=== PATIENT | male | born 1980 | race Caucasian/White ===

== ENCOUNTER 2018-04-04 15:21 | Observation (INO) ==
--- NOTE | 2018-04-04 15:38 | Emergency Department Note ---
ED Disposition Clinical Impression: Hypoglycemia, New onset seizure Disposition: Still a Patient Condition on Discharge: Fair Referrals: Merle Lopez APRN [Primary Care Provider] - - Critical Care Critical Care Time: No Attestation: On , the high probability of a clinically significant, sudden or life threatening deterioration of the following system(s) required my full and direct attention, intervention and personal management. The time I documented below is in addition to time spent performing reported procedures but includes the following listed in this critical care notation. Medical Decision Making - Dax Inquiry Pt receiving controlled substance: No Dax was queried for this patient: No Vital Signs: 04/04/18 15:22 04/04/18 17:08 Temperature 98.0 F Temperature Source Oral Pulse Rate [Left Radial] 114 H 94 H Respiratory Rate 20 Blood Pressure [Right Arm] 131/79 126/83 Blood Pressure Mean [Right Arm] 96 97 Blood Pressure Source [Right Arm] Automatic Cuff Automatic Cuff Blood Pressure Position [Right Arm] Sitting Sitting 02 Sat by Pulse Oximetry 99 98 Oxygen Delivery Method Room Air Room Air - Lab Data Lab Results 04/04/18 16:25: WBC 16.6 H, RBC 5.05, Hgb 14.4, Hct 42.8, MCV 84.8, MCH 28.5, MCHC 33.6, RDW 13.2, Plt Count 260, MPV 7.5, Neut % (Auto) 87.4 H, Lymph % (Auto) 5.6 L, [place] % (Auto) 5.4, Eos % (Auto) 1.0, Baso % (Auto) 0.5, Neut # (Auto) 14.6 H, Lymph # (Auto) 0.9, [place] # (Auto) 0.9, Eos # (Auto) 0.2, Baso # (Auto) 0.1, Total Counted 100, Neutrophils % (Manual) 86 H, Band Neutrophils % 1.0, Lymphocytes % (Manual) 7 L, Monocytes % (Manual) 5, Eosinophils % (Manual) 1, Platelet Estimate Normal, RBC Morphology Normal 04/04/18 16:25: Sodium 138, Potassium 4.2, Chloride 103, Carbon Dioxide 27, Anion Gap 7.7, BUN 15, Creatinine 1.49 H, Estimated Creat Clear 57, Estimated GFR 53 L, Est GFR ( Amer) 65, Glucose 127 H, Calcium 8.9, Total Bilirubin 0.3, AST 19, ALT 25, Alkaline Phosphatase 57, Total Creatine Kinase 144, CK-MB (CK-2) 1.7, CK-MB (CK-2) Rel Index 1.2, Troponin I < 0.02, Total Protein 7.9, Albumin 4.1, Globulin 3.8 H, Albumin/Globulin Ratio 1.1, Plasma/Serum Alcohol 0 04/04/18 17:35: Urine Color Yellow, Urine Appearance Clear, Urine pH 6.5, Ur Specific [place] <= 1.005, Urine Protein Negative, Urine Glucose (UA) Negative, Urine Ketones Negative, Urine Blood Negative, Urine Nitrate Negative, Urine Bilirubin Negative, Urine Urobilinogen 0.2, Ur Leukocyte Esterase Negative, Urine WBC Occasional, Amorphous Sediment Trace 04/04/18 17:35: Urine Opiates Screen Negative, Urine Methadone Screen Negative, Ur Barbituates Screen Negative, Ur Phencyclidine Scrn Negative, Ur Amphetamines Screen Negative, U Benzodiazepines Scrn Negative, Urine Cocaine Screen Negative, U Marijuana (THC) Screen Negative Result diagrams: 04/04/18 16:25 04/04/18 16:25 Orders (Tests/Meds): ED MEDICATIONS Discontinued Medications Generic Name Dose Route Start Last Admin Trade Name Michaelq PRN Reason Stop Dose Admin Sodium Chloride 1,000 mls @ 999 mls/hr 04/04/18 15:45 04/04/18 17:04 Sod Chlor 0.9% 1000ml Bag IV 04/04/18 16:45 999 mls/hr .[id number] Administration Ceftriaxone Sodium 1 gm/ 50 mls @ 100 mls/hr 04/04/18 17:04 04/04/18 17:27 Sodium Chloride IV 04/04/18 17:33 100 mls/hr ONCE ONE Administration Protocol ORDERS Category Date Time Status Chest XR -- portable [XR chest portable] Stat Exams 04/04/18 15:40 Taken Lactic Acid Stat Lab 04/04/18 18:10 Received Urinalysis and Microscopic Stat Lab 04/04/18 17:35 Ordered Blood Culture Stat Micro 04/04/18 18:10 Received ECG Request by /Nse Stat Y 04/04/18 15:34 Ordered - CT Data CT Scan: Head Time Received: 18:06 Findings Narrative: MPRESSION: No acute intracranial findings. Brain within normal limits. - ECG Data Tracing #1 Sinus tachycardia 103/min right axis deviation no acute finding. ECG initial impression date: 04/04/18 ECG initial impression time: 15:40 Medical Decision Narrative: I reviewed clinical findings labs CT and x-rays with Dr. Faustin his primary physician. At this point is not clear what caused his new onset seizure his hypoxemia is the alcohol withdrawal or else. He has elevated white count without fever or a source. He has no meningeal signs no stiffness no rigidity. No altered mental status. Dr. Faustin agreed to the patient for observe. General Adult HPI - General Chief complaint: PAIN Stated complaint: Pain Time Seen by Provider: 04/04/18 15:25 Mode of Arrival: EMS Limitations: No Limitations Description of Symptoms (Recalled from ER Triage Doc. by RN): Pt states he is having chest pain on his right side under his arm to right back. States he was having muscle spasms that started today. Family states that he blacked out for about 10 minutes and looked like he was having a seizure - History of Present Illness HPI narrative: 37 years old white male with history of hypokalemia noncompliant with his potassium replacment. Today at 2 PM he started, generalized body shakes and sti ffness questionable for tonic-clonic seizure seizure, of consciousness that lasted for 10 minutes followed by another 10 minutes for him to recover. Accu- Chek by the was found to be 58 he was given p.o. orange juice and blood sugar was raised to 208. He remains alert with generalized shakes until he arrived to the ED. he has no focal deficit alert oriented x3. Onset (ago): hour(s) (1-1/2-hour ago.) Relieving factors: none Exacerbating factors: none Associated symptoms: other (possibles Seizures. ) Treatments prior to arrival: none - Related Data Allergies Allergy/AdvReac Type Severity Reaction Status Date / Time No Known Allergies Allergy Unverified 06/09/17 14:14 [facility] History I have reviewed the patient's past medical history: Yes - Social History Alcohol Intake: current Alcohol Intake Frequency:: holidays/special occasions only - Psychiatric History Expresses thoughts of harming self/others: None Suicide Plan Description: No Plan ROS Obtained: Yes All systems reviewed & no additional complaints Physical Exam - General General appearance: alert, in no apparent distress, anxious - Head Head exam: atraumatic, normocephalic, normal inspection - Eye Eye exam: Present: normal appearance, PERRL, EOMI. Absent: scleral icterus, nystagmus - ENT ENT exam: Present: normal exam, normal oropharynx, mucous membranes moist, TM's normal bilaterally, normal external ear exam - Neck Neck exam: Present: normal inspection, full ROM, trachea midline. Absent: tenderness, meningismus, lymphadenopathy - Chest Chest inspection: Present: normal inspection, symmetric chest wall rise. Absent: tenderness - Respiratory Respiratory exam: Present: normal lung sounds bilaterally. Absent: respiratory distress, wheezes - Cardiovascular Cardiovascular exam: Present: regular rate, normal rhythm, normal heart sounds. Absent: JVD - Abdominal Exam Abdominal exam: Present: soft, normal bowel sounds. Absent: distention, tenderness, guarding, rebound, rigidity, Gonzalez's sign, tenderness at McBurney's Point - Extremities Exam Extremities exam: Present: normal inspection, full ROM, normal capillary refill. Absent: tenderness, pedal edema, joint swelling, calf tenderness - Back Exam Back exam: Present: normal inspection. Absent: tenderness, CVA tenderness (R), CVA tenderness (L), paraspinal tenderness - Neurological Exam Neurological exam: Present: alert, oriented X3, CN II-XII intact, motor sensory deficit, reflexes normal - Psychiatric Psychiatric exam: Present: normal affect, normal mood, anxious, other (He is anxious and shaking. ) - Skin Skin exam: Present: warm, dry, intact, normal color - Lymphatic Lymphatic Findings: no adenopathy
[2018-04-04 16:41] LABS: Basophils # 0.1 K/mm3 (0-0.2); Basophils % 0.5 % (0.1-2.0); Eosinophils # 0.2 K/mm3 (0.0-0.4); Hematocrit 42.8 % (42.0-52.0); Hemoglobin 14.4 g/dL (14.1-18.0); Lymphocytes # 0.9 K/mm3 (0.7-4.5); Lymphocytes % 5.6 K/mm3 (10-50); Mean Corpuscular HGB Conc 33.6 g/dL (31.8-35.4); Mean Corpuscular Hemoglobin 28.5 pg (27.0-31.2); Mean Corpuscular Volume 84.8 fl (80-94); Mean Platelet Volume 7.5 fl (7.4-10.4); Monocytes # 0.9 K/mm3 (0.1-1.0); Monocytes % 5.4 % (1.7-9.3); Neutrophils # 14.6 K/mm3 (1.8-7.8); Neutrophils % 87.4 % (37.0-80.0); Platelet Count 260 K/mm3 (142-424); Red Blood Count 5.05 M/mm3 (4.60-6.20); Red Cell Distribution Width 13.2 % (11.5-17.5); White Blood Count 16.6 K/mm3 (4.8-10.8)
[2018-04-04 16:56] LABS: Alanine Aminotransferase 25 U/L (12-78); Albumin Level 4.1 gm/dL (3.4-5.0); Albumin/Globulin Ratio 1.1 (1.1-1.8); Anion Gap 7.7 mEq/L (5-15); Aspartate Amino Transferase 19 U/L (15-37); Bilirubin,Total 0.3 mg/dL (0.2-1.0); Blood Urea Nitrogen 15 mg/dL (7-18); Calcium 8.9 mg/dL (8.5-10.1); Carbon Dioxide 27 mmol/L (21.0-32.0); Chloride 103 mmol/L (98-107); Creatine Kinase 144 U/L (39-308); Globulin 3.8 gm/dl (1.3-3.2); Glucose 127 mg/dL (74-106); Potassium 4.2 mmoL/L (3.5-5.1); Sodium 138 mmol/L (136-145); Total Protein,Serum 7.9 gm/dL (6.4-8.2)
[2018-04-04 16:57] LABS: Alkaline Phosphatase 57 U/L (46-116); Ethyl Alcohol 0 mg/dL (0-99)
[2018-04-04 16:59] LABS: Eosinophils % 1 % (0-3); Lymphocytes % 7 % (10-50); Monocytes % 5 % (2-9); Neutrophils % 86 % (42-76); RBC Morphology Normal; Total Cells Counted 100
[2018-04-04 17:48] LABS: Microscopic, Urine URINE MICROSCOPIC (MICROSCOPIC)
[2018-04-04 17:52] LABS: Appearance,Urine CLEAR (Clear); Bilirubin,Urine Negative (Negative); Blood, Urine Negative (Negative); Color,Urine YELLOW (Yellow); Glucose,Urine (UA) Negative (Negative); Ketones,Urine Negative (Negative); Leukocyte Esterase,Urine Negative (Negative); PH,Urine 6.5 (5.0-8.5); Protein,Urine Negative (Negative); Specific Gravity, Urine <= 1.005 (1.005-1.030); Urobilinogen,Urine 0.2 EU/dl (0.2)
[2018-04-04 17:57] LABS: Amorphous Sediment,Urine Trace /lpf; WBC,Urine Occasional #/hpf (0-3)
[2018-04-04 17:58] LABS: Amphetamine/Metha Screen,Urine Negative ng/mL (<1000); Barbiturates Screen,Urine Negative ng/mL (<200); Benzodiazepines Screen,Urine Negative ng/mL (<200); Cannabinoid Screen,Urine Negative ng/mL (<50); Cocaine Screen,Urine Negative ng/mL (<300); Methadone Screen,Urine Negative ng/mL (<300); Opiate Screen,Urine Negative ng/mL (<300); Phencyclidine Screen,Urine Negative ng/mL (<25)
--- NOTE | 2018-04-05 06:53 | History & Physical Report ---
*Admission Date: 04/05/18 *Chief complaint: Witnessed seizure-like activity *History of present illness: 37-year-old male was at home in his usual state of health when he experienced sudden onset of bilateral hand cramping. This was followed by a sensation as if he might pass out. He went into his living room to sit down when he developed seizure-like activity witnessed by his . Patient does not recall this. His does not recall how long the episode lasted. He apparently has a history of hypoglycemia so she checked his blood sugar and his blood sugar was 58. She was able to get his blood sugar up once the seizure-like activity calm down. He was then brought to the emergency department. There is a family history of seizures in his brother as a child. Otherwise no other family members with seizures. This is the first seizure-like event the patient has had. He did not bite his tongue. He denies loss of bowel or bladder function. While he has a history of hypoglycemia he has never had any seizure-like activity associated with them. His blood sugar has been lower than 58 in the past. [facility] History I have reviewed the patient's past medical history: Yes Medical History: Denies:: Cancer, Diabetes Mellitus Type 1 (PT STATES NOT DX WITH DM, BUT RUNS LOW A LOT), MRSA Comment: Chronic back pain Laterality Cases: Right: Other Other Surgeries: Yes: Other (RIGHT PINKY FINGER) Amputation: No Fractures: Yes - *Social History Educational Level: Attended Grade School Smoking Status: Unknown if ever smoked Tobacco Type: smokeless tobacco Alcohol Intake: never Alcohol Intake Frequency:: holidays/special occasions only Occupational Status: employed Household Members: spouse, children - Psychiatric History Expresses thoughts of harming self/others: None Suicide Plan Description: No Plan *Family Hx:: Diabetes, Heart Attack, Hyperlipidemia, Hypertension, Stroke Review of Systems - Review of Systems Review of systems:: pertinent systems reviewed and negative unless documented below - Constitutional Denies body ache(s), Denies chills, Denies daytime sleepiness - Eyes Reports blurry vision Comments: Associated with low blood sugar - *Cardiovascular Denies chest pain, Denies chest pain at rest, Denies chest pain with activity - *Respiratory Denies chest congestion, Denies cough - *Gastrointestinal Denies abdominal pain, Denies belching, Denies bloating - *Musculoskeletal Reports joint pain, Denies abnormal walking - *Neurologic Reports abnormal movements, Denies abnormal walking, Denies abnormal hearing, Denies abnormal speech Meds Home Medications Medication Instructions Recorded Confirmed Type Meloxicam 15 mg PO DAILY 04/04/18 04/04/18 History Miscellaneous [Unknown Home 0 each NOTAPPLIC CONSULT PHARMACY 04/04/18 04/04/18 History Medication] Potassium Chloride [K-Tab ER 20 20 meq PO DAILY 04/04/18 04/04/18 History mEq] Zanaflex 4mg tablet 4 mg PO TID PRN 04/04/18 04/04/18 History Allergies Allergy/AdvReac Type Severity Reaction Status Date / Time No Known Allergies Allergy Unverified 06/09/17 14:14 Exam Vital signs and Labs for Last 24 Hours: Temp Pulse Resp BP Pulse Ox 97.9 F 64 16 99/59 L 98 04/05/18 04:00 04/05/18 04:00 04/05/18 04:00 04/05/18 04:00 04/05/18 04:00 Laboratory Results - last 24 hr 04/04/18 16:25: WBC 16.6 H, RBC 5.05, Hgb 14.4, Hct 42.8, MCV 84.8, MCH 28.5, MCHC 33.6, RDW 13.2, Plt Count 260, MPV 7.5, Neut % (Auto) 87.4 H, Lymph % (Auto) 5.6 L, [place] % (Auto) 5.4, Eos % (Auto) 1.0, Baso % (Auto) 0.5, Neut # (Auto) 14.6 H, Lymph # (Auto) 0.9, [place] # (Auto) 0.9, Eos # (Auto) 0.2, Baso # (Auto) 0.1, Total Counted 100, Neutrophils % (Manual) 86 H, Band Neutrophils % 1.0, Lymphocytes % (Manual) 7 L, Monocytes % (Manual) 5, Eosinophils % (Manual) 1, Platelet Estimate Normal, RBC Morphology Normal 04/04/18 16:25: Sodium 138, Potassium 4.2, Chloride 103, Carbon Dioxide 27, Anion Gap 7.7, BUN 15, Creatinine 1.49 H, Estimated Creat Clear 57, Estimated GFR 53 L, Est GFR ( Amer) 65, Glucose 127 H, Calcium 8.9, Total Bilirubin 0.3, AST 19, ALT 25, Alkaline Phosphatase 57, Total Creatine Kinase 144, CK-MB (CK-2) 1.7, CK-MB (CK-2) Rel Index 1.2, Troponin I < 0.02, Total Protein 7.9, Albumin 4.1, Globulin 3.8 H, Albumin/Globulin Ratio 1.1, Plasma/Serum Alcohol 0 04/04/18 17:35: Urine Color Yellow, Urine Appearance Clear, Urine pH 6.5, Ur Specific [place] <= 1.005, Urine Protein Negative, Urine Glucose (UA) Negative, Urine Ketones Negative, Urine Blood Negative, Urine Nitrate Negative, Urine Bilirubin Negative, Urine Urobilinogen 0.2, Ur Leukocyte Esterase Negative, Urine WBC Occasional, Amorphous Sediment Trace 04/04/18 17:35: Urine Opiates Screen Negative, Urine Methadone Screen Negative, Ur Barbituates Screen Negative, Ur Phencyclidine Scrn Negative, Ur Amphetamines Screen Negative, U Benzodiazepines Scrn Negative, Urine Cocaine Screen Negative, U Marijuana (THC) Screen Negative 04/04/18 18:10: Lactate 1.6 04/04/18 21:10: Troponin I < 0.02 04/04/18 22:00: POC Glucose 114 H I & O for Last 24 hours: Intake & Output 04/02/18 04/03/18 04/04/18 04/05/18 11:59 11:59 11:59 11:59 Intake Total 289 / 289 Balance 289 / 289 Weight 127 lb 4 oz - Constitutional no acute distress - *Routine HEENT Exam Head: Present: normocephalic, atraumatic Eye: Present: PERRL ENT: Present: mucous membranes moist - *Routine Neck Exam Present: supple, full ROM. Absent: JVD - *Routine Respiratory Exam Present: CTA bilaterally - *Routine Cardiovascular Exam Present: RRR, Normal S1, Normal S2 - *Routine Abdominal Exam Present: soft, normoactive bowel sounds - *Routine Neurological Exam Present: alert, oriented X3, CN II-XII intact, normal reflexes, moving all extremities, normal tone, vision grossly intact, hearing grossly intact, facial asymmetry, normal speech. Absent: sensory deficit, motor deficit, pronator drift, altered mental status, tremors Assessment and Plan (1) Hypoglycemia Current visit: Yes Status: Acute Category: Medical Code(s): E16.2 - Hypoglycemia, unspecified (2) New onset seizure Current visit: Yes Status: Acute Category: Medical Code(s): R56.9 - Unspecified convulsions - Assessment and plan all Dx Assessment and Plan for all problems:: 1. Continue to monitor blood sugar before meals and at bedtime 2. EEG today 3. Anticipate discharge later this afternoon once testing has been completed.
[2018-04-05 07:07] LABS: Basophils # 0.1 K/mm3 (0-0.2); Basophils % 0.9 % (0.1-2.0); Eosinophils # 0.4 K/mm3 (0.0-0.4); Eosinophils % 5.5 % (0.1-12.0); Hematocrit 36.6 % (42.0-52.0); Lymphocytes # 1.8 K/mm3 (0.7-4.5); Lymphocytes % 25.9 K/mm3 (10-50); Mean Corpuscular HGB Conc 32.8 g/dL (31.8-35.4); Mean Corpuscular Hemoglobin 28.1 pg (27.0-31.2); Mean Corpuscular Volume 85.9 fl (80-94); Mean Platelet Volume 7.6 fl (7.4-10.4); Monocytes # 0.6 K/mm3 (0.1-1.0); Monocytes % 8.1 % (1.7-9.3); Neutrophils # 4.2 K/mm3 (1.8-7.8); Neutrophils % 59.7 % (37.0-80.0); Platelet Count 218 K/mm3 (142-424); Red Blood Count 4.26 M/mm3 (4.60-6.20); Red Cell Distribution Width 13.6 % (11.5-17.5); White Blood Count 7.1 K/mm3 (4.8-10.8)
[2018-04-05 07:18] LABS: Anion Gap 10.9 mEq/L (5-15); Calcium 8.4 mg/dL (8.5-10.1); Potassium 3.9 mmoL/L (3.5-5.1)
[2018-04-05 07:34] LABS: Hemoglobin 12.1 g/dL (14.1-18.0)
--- NOTE | 2018-04-05 07:35 | Pharmacy Consult Notes ---
[facility] Pharmacy VTE Monitoring - Patient Demographics Admission date: 04/05/18 Report Date: 04/05/18 Time: 07:34 Allergies/Adverse Reactions: Patient Allergies No Known Allergies Allergy (Unverified 06/09/17 14:14) Height: 1.65 m Weight: 57.72 kg Patient Problems: Current Active Problems Hypoglycemia (Acute) New onset seizure (Acute) - VTE Risk Labs: VTE Related Lab Results Hgb 14.4 g/dL (14.1-18.0) 04/04/18 16:25 Hct 36.6 % (42.0-52.0) L 04/05/18 06:36 Plt Count 218 K/mm3 (142-424) 04/05/18 06:36 BUN 11 mg/dL (7-18) D 04/05/18 06:36 Creatinine 1.04 mg/dL (0.70-1.30) D 04/05/18 06:36 Estimated Creat Clear 80 mL/min (0-300) 04/05/18 06:36 Was VTE Risk Assessment Performed: Yes VTE Score: 2 VTE Risk Level: Very Low Risk Clinical Trial Participant: No - Prophylaxis VTE Prophylaxis Ordered?: Yes Types of VTE Prophylaxis: TEDS Knee High
--- NOTE | 2018-04-05 16:38 | Discharge Summary ---
General - General Admission date:: 04/04/18 Discharge date: 04/05/18 HPI HPI: 37-year-old male was at home in his usual state of health when he experienced sudden onset of bilateral hand cramping. This was followed by a sensation as if he might pass out. He went into his living room to sit down when he developed seizure-like activity witnessed by his . Patient does not recall this. His does not recall how long the episode lasted. He apparently has a history of hypoglycemia so she checked his blood sugar and his blood sugar was 58. She was able to get his blood sugar up once the seizure-like activity calm down. He was then brought to the emergency department. There is a family history of seizures in his brother as a child. Otherwise no other family members with seizures. This is the first seizure-like event the patient has had. He did not bite his tongue. He denies loss of bowel or bladder function. While he has a history of hypoglycemia he has never had any seizure-like activity associated with them. His blood sugar has been lower than 58 in the past. Hospital Course Hospital Course: Patient was admitted overnight for observation with serial glucose checks. Blood sugars remained in the low 100s. No abnormal movements or seizure-like activity was witnessed. EEG was performed which did not show any epileptic activity. Patient was discharged home. He will follow-up in the office on as- needed basis. It is believed his hypoglycemia triggered this episode. I did have a discussion with the patient on dietary recommendations to avoid hypoglycemia. Objective Vital signs: Temp Pulse Resp BP Pulse Ox 97.6 F 70 20 126/93 H 98 04/05/18 16:06 04/05/18 16:06 04/05/18 16:06 04/05/18 16:06 04/05/18 16:06 Results Labs on day of discharge: Labs from last 24 hours 04/05/18 04/05/18 04/05/18 12:09 08:54 06:36 WBC RBC Hgb Hct MCV MCH MCHC RDW Plt Count MPV Neut % (Auto) Lymph % (Auto) [place] % (Auto) Eos % (Auto) Baso % (Auto) Neut # (Auto) Lymph # (Auto) [place] # (Auto) Eos # (Auto) Baso # (Auto) Total Counted Neutrophils % (Manual) Band Neutrophils % Lymphocytes % (Manual) Monocytes % (Manual) Eosinophils % (Manual) Platelet Estimate RBC Morphology Sodium 141 Potassium 3.9 Chloride 108 H Carbon Dioxide 26 Anion Gap 10.9 BUN 11 D Creatinine 1.04 D Estimated Creat Clear 80 Estimated GFR 81 Est GFR ( Amer) 98 D Glucose 96 D POC Glucose 115 H 97 Lactate Calcium 8.4 L Total Bilirubin AST ALT Alkaline Phosphatase Total Creatine Kinase CK-MB (CK-2) CK-MB (CK-2) Rel Index Troponin I Total Protein Albumin Globulin Albumin/Globulin Ratio Urine Color Urine Appearance Urine pH Ur Specific [place] Urine Protein Urine Glucose (UA) Urine Ketones Urine Blood Urine Nitrate Urine Bilirubin Urine Urobilinogen Ur Leukocyte Esterase Urine WBC Amorphous Sediment Urine Opiates Screen Urine Methadone Screen Ur Barbituates Screen Ur Phencyclidine Scrn Ur Amphetamines Screen U Benzodiazepines Scrn Urine Cocaine Screen U Marijuana (THC) Screen Plasma/Serum Alcohol 04/05/18 04/04/18 04/04/18 06:36 22:00 21:10 WBC 7.1 D RBC 4.26 L Hgb 12.1 L D Hct 36.6 L MCV 85.9 MCH 28.1 MCHC 32.8 RDW 13.6 Plt Count 218 MPV 7.6 Neut % (Auto) 59.7 Lymph % (Auto) 25.9 [place] % (Auto) 8.1 Eos % (Auto) 5.5 Baso % (Auto) 0.9 Neut # (Auto) 4.2 Lymph # (Auto) 1.8 [place] # (Auto) 0.6 Eos # (Auto) 0.4 Baso # (Auto) 0.1 Total Counted Neutrophils % (Manual) Band Neutrophils % Lymphocytes % (Manual) Monocytes % (Manual) Eosinophils % (Manual) Platelet Estimate RBC Morphology Sodium Potassium Chloride Carbon Dioxide Anion Gap BUN Creatinine Estimated Creat Clear Estimated GFR Est GFR ( Amer) Glucose POC Glucose 114 H Lactate Calcium Total Bilirubin AST ALT Alkaline Phosphatase Total Creatine Kinase CK-MB (CK-2) CK-MB (CK-2) Rel Index Troponin I < 0.02 Total Protein Albumin Globulin Albumin/Globulin Ratio Urine Color Urine Appearance Urine pH Ur Specific [place] Urine Protein Urine Glucose (UA) Urine Ketones Urine Blood Urine Nitrate Urine Bilirubin Urine Urobilinogen Ur Leukocyte Esterase Urine WBC Amorphous Sediment Urine Opiates Screen Urine Methadone Screen Ur Barbituates Screen Ur Phencyclidine Scrn Ur Amphetamines Screen U Benzodiazepines Scrn Urine Cocaine Screen U Marijuana (THC) Screen Plasma/Serum Alcohol 04/04/18 04/04/18 04/04/18 18:10 17:35 17:35 WBC RBC Hgb Hct MCV MCH MCHC RDW Plt Count MPV Neut % (Auto) Lymph % (Auto) [place] % (Auto) Eos % (Auto) Baso % (Auto) Neut # (Auto) Lymph # (Auto) [place] # (Auto) Eos # (Auto) Baso # (Auto) Total Counted Neutrophils % (Manual) Band Neutrophils % Lymphocytes % (Manual) Monocytes % (Manual) Eosinophils % (Manual) Platelet Estimate RBC Morphology Sodium Potassium Chloride Carbon Dioxide Anion Gap BUN Creatinine Estimated Creat Clear Estimated GFR Est GFR ( Amer) Glucose POC Glucose Lactate 1.6 Calcium Total Bilirubin AST ALT Alkaline Phosphatase Total Creatine Kinase CK-MB (CK-2) CK-MB (CK-2) Rel Index Troponin I Total Protein Albumin Globulin Albumin/Globulin Ratio Urine Color Yellow Urine Appearance Clear Urine pH 6.5 Ur Specific [place] <= 1.005 Urine Protein Negative Urine Glucose (UA) Negative Urine Ketones Negative Urine Blood Negative Urine Nitrate Negative Urine Bilirubin Negative Urine Urobilinogen 0.2 Ur Leukocyte Esterase Negative Urine WBC Occasional Amorphous Sediment Trace Urine Opiates Screen Negative Urine Methadone Screen Negative Ur Barbituates Screen Negative Ur Phencyclidine Scrn Negative Ur Amphetamines Screen Negative U Benzodiazepines Scrn Negative Urine Cocaine Screen Negative U Marijuana (THC) Screen Negative Plasma/Serum Alcohol 04/04/18 04/04/18 16:25 16:25 WBC 16.6 H RBC 5.05 Hgb 14.4 Hct 42.8 MCV 84.8 MCH 28.5 MCHC 33.6 RDW 13.2 Plt Count 260 MPV 7.5 Neut % (Auto) 87.4 H Lymph % (Auto) 5.6 L [place] % (Auto) 5.4 Eos % (Auto) 1.0 Baso % (Auto) 0.5 Neut # (Auto) 14.6 H Lymph # (Auto) 0.9 [place] # (Auto) 0.9 Eos # (Auto) 0.2 Baso # (Auto) 0.1 Total Counted 100 Neutrophils % (Manual) 86 H Band Neutrophils % 1.0 Lymphocytes % (Manual) 7 L Monocytes % (Manual) 5 Eosinophils % (Manual) 1 Platelet Estimate Normal RBC Morphology Normal Sodium 138 Potassium 4.2 Chloride 103 Carbon Dioxide 27 Anion Gap 7.7 BUN 15 Creatinine 1.49 H Estimated Creat Clear 57 Estimated GFR 53 L Est GFR ( Amer) 65 Glucose 127 H POC Glucose Lactate Calcium 8.9 Total Bilirubin 0.3 AST 19 ALT 25 Alkaline Phosphatase 57 Total Creatine Kinase 144 CK-MB (CK-2) 1.7 CK-MB (CK-2) Rel Index 1.2 Troponin I < 0.02 Total Protein 7.9 Albumin 4.1 Globulin 3.8 H Albumin/Globulin Ratio 1.1 Urine Color Urine Appearance Urine pH Ur Specific [place] Urine Protein Urine Glucose (UA) Urine Ketones Urine Blood Urine Nitrate Urine Bilirubin Urine Urobilinogen Ur Leukocyte Esterase Urine WBC Amorphous Sediment Urine Opiates Screen Urine Methadone Screen Ur Barbituates Screen Ur Phencyclidine Scrn Ur Amphetamines Screen U Benzodiazepines Scrn Urine Cocaine Screen U Marijuana (THC) Screen Plasma/Serum Alcohol 0 DS: Diagnosis - Discharge Diagnosis (1) Hypoglycemia Status: Acute (2) Witnessed seizure-like activity Status: Acute Discharge Plan - Patient Discharge Instructions ACTIVITY: Continue current activity DIET: continue same diet Patient Instructions: Hypoglycemia, DI for Hypoglycemia - Follow up Plan Disposition: Home, Self-Usp Medications: Home Medications Medication Instructions Recorded Confirmed Type RX: Miscellaneous [Unknown Home 0 each NOTAPPLIC CONSULT PHARMACY 04/04/18 04/04/18 History Medication] RX: Potassium Chloride [K-Tab ER 20 meq PO DAILY 04/04/18 04/04/18 History 20 mEq] RX: Tizanidine HCl [Zanaflex] 4 mg PO TIDP PRN 04/04/18 04/05/18 History RX: Meloxicam 15 mg PO DAILY 04/05/18 04/05/18 History Prescriptions/Medication Reconciliation: Continue RX: Miscellaneous [Unknown Home Medication] 0 each NOTAPPLIC CONSULT PHARMACY RX: Tizanidine HCl [Zanaflex] 4 mg PO TIDP PRN PRN Reason: MUSCLE RELAXER RX: Potassium Chloride [K-Tab ER 20 mEq] 20 meq PO DAILY RX: Meloxicam 15 mg PO DAILY
== END 2018-04-05 17:51 | disposition home or self-care (01) ==
LOC: ER 15:21 → 2ND 15:21
PROVIDERS: ADMIT Family Medicine; ATTEND Family Medicine

== ENCOUNTER → 2018-06-19 12:13 | Outpatient (CLI) | payer OTHER, MEDICAID, SELFPAY | LOC: LAB 12:13 → LAB.DROPOF 06-20 07:52 | PROVIDERS: Visit Provider Nurse Practitioner Family | DX: R10.84 Generalized abdominal pain (principal) | CPT/HCPCS: 87177 ==

== ENCOUNTER → 2020-11-23 15:36 | Outpatient (CLI) | payer OTHER, SELFPAY ==
--- NOTE | 2020-11-23 15:42 | XR_ITS ---
PROCEDURE: XR LUMBAR SPINE MIN 4V CLINICAL INDICATION: LUMBAR BACK PAIN W/ RADICULOPATHY AFFECTING RT LOW EXTREMITY COMPARISON: CR [id number] LUMBAR SPINE-2 TO 3 VIEWS from 05/17/2016 FINDINGS: Alignment: Normal alignment. There is straightening of the lumbar lordosis as before Bony structures: No fracture or dislocation. No lytic or blastic change. Disc spaces: No significant degenerative change. The disc spaces are preserved. Additional findings: Moderate amount of retained colonic feces IMPRESSION: Straightening of lumbar lordosis otherwise negative lumbar spine. Constipation Dictated by: Jeison Baker MD 11/23/2020 17:10 Jeison Baker MD in [place] 11/23/2020 17:10
== END ==
PROVIDERS: PCP Nurse Practitioner Family; Visit Provider Nurse Practitioner Family
DX: M54.16 Radiculopathy, lumbar region (principal); M51.26 Other intervertebral disc displacement, lumbar region
CPT/HCPCS: 72110

== ENCOUNTER → 2020-11-29 15:55 | Outpatient (CLI) | payer OTHER, SELFPAY ==
--- NOTE | 2020-11-29 15:57 | MR_ITS ---
PROCEDURE: MR LUMBAR SPINE WO CON CLINICAL INDICATION: LUMBAR BACK PAIN WITH RADICULOPATHY Lbp x7yrs. Rt leg pain and tingling. No recent injury or trauma. Prior x-ray 11/23/20. Prior MR 05/30/16 COMPARISON: MR CLERK TYPIST/O MRI-L-SPINE W/O from 05/30/2016 TECHNIQUE: Standard multiplanar multiecho sequences are performed without contrast. 3-D MIP and myelographic images are also rendered and reviewed FINDINGS: There is normal alignment. The spinal cord ends at the L1 level. T12-L1: Unremarkable. L1-L2: Unremarkable L2-L3: Unremarkable. Small stable T2 hyperintensity involves the L3 vertebral body superiorly and on the right. L3-L4: Unremarkable. L4-5: Mild disc desiccation with minimal bulging disc and a small central/left paracentral disc protrusion causing mild left lateral recess narrowing .. This is not significantly changed. There is mild facet and ligamentum hypertrophy also. L5-S1: Minimal concentric bulging disc slightly eccentric toward the right along with facet and ligamentum hypertrophy with mild right lateral recess narrowing. The right lateral recess narrowing is slightly worse compared to the previous exam. IMPRESSION: 1. L4-5: Mild disc desiccation with minimal bulging disc and a small central/left paracentral disc protrusion causing mild left lateral recess narrowing .. This is not significantly changed . There is mild facet and ligamentum hypertrophy also. 2. L5-S1: Minimal concentric bulging disc slightly eccentric toward the right along with facet and ligamentum hypertrophy with mild right lateral recess narrowing. The right lateral recess narrowing is slightly worse compared to the previous exam. 3. No extruded herniated disc or bony canal stenosis. Dictated by: Jeison Baker MD 11/30/2020 07:50 Jeison Baker MD in [place] 11/30/2020 07:50
== END ==
PROVIDERS: PCP Nurse Practitioner Family; Visit Provider Nurse Practitioner Family
DX: M54.16 Radiculopathy, lumbar region (principal); M51.26 Other intervertebral disc displacement, lumbar region
CPT/HCPCS: 72148; 76376

== ENCOUNTER → 2020-12-04 15:38 | Outpatient (CLI) | payer OTHER, SELFPAY ==
[2020-12-04 17:03] LABS: Thyroid Stimulating Hormone 0.95 uIU/mL (0.465-4.68)
[2020-12-04 17:37] LABS: Vitamin B12 404 pg/mL (239-931)
[2020-12-04 18:09] LABS: Folate 4.79 ng/mL
[2020-12-06 06:45] LABS: Ceruloplasmin 20.9 mg/dL (16.0-31.0)
== END ==
PROVIDERS: Visit Provider Nurse Practitioner Family
DX: R25.1 Tremor, unspecified (principal)
CPT/HCPCS: 36415; 82390; 82607; 82746; 84443

== ENCOUNTER → 2020-12-11 15:53 | Outpatient (CLI) | payer OTHER, SELFPAY ==
--- NOTE | 2020-12-11 15:53 | MR_ITS ---
PROCEDURE INFORMATION: Exam: MR Cervical Spine Without Contrast Exam date and time: 12/11/2020 3:53 PM Age: 40 years old Clinical indication: Neck pain; Additional info: Eval for stenosis, cord compression. Tremors. Headache x3-4yrs. HX parkinsons in family. TECHNIQUE: Imaging protocol: Multiplanar magnetic resonance images of the cervical spine without contrast. COMPARISON: HEADWO CT head/brain wo con 04/04/2018 4:10 PM FINDINGS: Vertebrae: Normal alignment. Normal bone marrow signal. Spinal cord: There is a congenitally narrow central spinal canal with mild diffuse central spinal stenosis. Normal signal. No cord compression. C2-C3: Mild central spinal stenosis. No disc herniation or foraminal stenosis. C3-C4: Mild central spinal stenosis. Mild left foraminal stenosis. No disc herniation. C4-C5: Minor posterior disc bulging causing mild central spinal stenosis. No disc herniation or foraminal stenosis. C5-C6: Minor posterior disc bulging causing mild central spinal stenosis. No disc herniation or foraminal stenosis. C6-C7: Mild spinal stenosis. No disc herniation or foraminal stenosis. C7-T1: No disc herniation or spinal stenosis. Soft tissues: Unremarkable. Vertebral arteries: Expected flow voids in the vertebral arteries. IMPRESSION: 1. 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 2. No disc herniation or cord compression. 3. Mild left foraminal stenosis at C3-C4.
--- NOTE | 2020-12-11 15:53 | MR_ITS ---
PROCEDURE INFORMATION: Exam: MR Head Without Contrast Exam date and time: 12/11/2020 3:53 PM Age: 40 years old Clinical indication: Pain; Headache; Additional info: Eval for [employer] abnormality. Tremors. Headache x3-4yrs. HX parkinsons in family. TECHNIQUE: Imaging protocol: MR of the head without contrast. COMPARISON: HEADWO CT head/brain wo con 04/04/2018 4:10 PM FINDINGS: Brain: Small lacunar infarct in the left basal ganglia is seen which appears chronic. No evidence of acute intracranial hemorrhage, midline shift, mass effect, mass lesion or findings of acute infarct. Cerebral ventricles: Normal. No ventriculomegaly. Bones/joints: Unremarkable. Paranasal sinuses: Normal as visualized. No acute sinusitis. Mastoid air cells: Normal as visualized. No mastoid effusion. Orbital cavity: Unremarkable. Soft tissues: Unremarkable. IMPRESSION: Small lacunar infarct in the left basal ganglia is seen which appears chronic. No evidence of acute intracranial hemorrhage, midline shift, mass effect, mass lesion or findings of acute infarct.
== END ==
PROVIDERS: PCP Nurse Practitioner Family; Visit Provider Specialist
DX: G25.9 Extrapyramidal and movement disorder, unspecified (principal); M54.2 Cervicalgia
CPT/HCPCS: 70551; 72141; 76376

== ENCOUNTER → 2020-12-31 15:26 | Outpatient (CLI) | payer OTHER, SELFPAY ==
[2020-12-31 17:09] LABS: Erythrocyte Sedimentation Rate 15 mm/hr (0-15)
[2020-12-31 17:41] LABS: Uric Acid 5.8 mg/dl (3.5-8.5)
[2020-12-31 17:46] LABS: C-Reactive Protein 0.5 mg/L (0-4)
[2021-01-02 09:01] LABS: RA Latex Turbid. <10.0 IU/mL (0.0-13.9)
[2021-01-03 10:10] LABS: Antinuclear Antibodies, IFA Negative (.)
== END ==
PROVIDERS: Visit Provider Nurse Practitioner Family
DX: M25.50 Pain in unspecified joint (principal)
CPT/HCPCS: 36415; 84550; 85651; 86038; 86140; 86431

== ENCOUNTER 2021-05-16 15:38 | Emergency (ER) | payer OTHER, SELFPAY ==
[2021-05-16 15:39] VITALS: BP 184/69; PULSE 57; RESP 16; TEMP 36.6; O2SAT 100; BMI 22.4
--- NOTE | 2021-05-16 15:56 | XR_ITS ---
PROCEDURE INFORMATION: Exam: XR Left Hand Exam date and time: 05/16/2021 3:56 PM Age: 40 years old Clinical indication: Injury or trauma; Other: Smashed; Blunt trauma (contusions or hematomas); Hand; Left; Additional info: Smashed left thumb with large piece of steel on tu TECHNIQUE: Imaging protocol: XR Left hand. Views: 3 or more views. COMPARISON: No relevant prior studies available. FINDINGS: Bones/joints: Fusion of the proximal interphalangeal joint of the 5th ray. No acute fracture. No dislocation. Soft tissues: Normal. IMPRESSION: Chronic changes without acute process.
--- NOTE | 2021-05-16 17:24 | HMH.EDGENADL ---
ED Disposition Clinical Impression: Crush injury to finger Qualifiers: Encounter type: initial encounter Qualified Code(s): S67.10XA - Crushing injury of unspecified finger(s), initial encounter Disposition: Home, Self-Care Condition on Discharge: Good Instructions: DI for Crush Injury Referrals: Merle Lopez APRN [Primary Care Provider] - Time of Disposition: 17:29 - Critical Care Critical Care Time: No Attestation: On 05/16/21, the high probability of a clinically significant, sudden or life threatening deterioration of the following system(s) required my full and direct attention, intervention and personal management. The time I documented below is in addition to time spent performing reported procedures but includes the following listed in this critical care notation. Medical Decision Making - Medical Records Medical records reviewed: Yes: I reviewed the patient's medical records. - Dax Inquiry Pt receiving controlled substance: Yes Dax was queried for this patient: Yes Risks and benefits of using a controlled substance: were discussed with pt by me Vital Signs: 05/16/21 15:39 Temperature 97.9 F Temperature Source Oral Pulse Rate [Right Radial] 57 L Respiratory Rate 16 Blood Pressure [Right Arm] 184/69 H Blood Pressure Mean [Right Arm] 107 Blood Pressure Source [Right Arm] Automatic Cuff Blood Pressure Position [Right Arm] Sitting 02 Sat by Pulse Oximetry 100 Oxygen Delivery Method Room Air Orders (Tests/Meds): ED MEDICATIONS Discontinued Medications Generic Name Dose Route Start Last Admin Trade Name Freq PRN Reason Stop Dose Admin Oxycodone HCl 5 mg 05/16/21 17:07 Oxycodone 5mg Immediate Release Tablet PO 05/16/21 17:08 ONCE ONE ORDERS Category Date Time Status XR hand LT min 3V Stat Exams 05/16/21 15:56 Taken Medical Decision Narrative: 40-year-old female presents to the emergency department for chief complaint of left thumb injury 2 days ago. He is concerned that his thumb may be broken due to continued pain and swelling. Patient was evaluated with an x-ray of the hand which did not show any bony fractures or malalignment. Patient does have a subungual hematoma, but at this point is greater than 48 hours old and his finger compartments are very soft. Patient was advised that he likely has a significant crush injury and there will be pain and swelling, but no fractures or reasons to splint, cast, or follow-up with orthopedics. Patient was advised to use Tylenol and ibuprofen at home as well as ice and elevation as much as possible. Patient a one-time dose of Percocet while in the emergency department for pain control and was discharged in stable condition. He is amenable to this plan. General Adult HPI - General Chief complaint: Extremity Injury, Upper Stated complaint: smashed L thumb with piece of steel 05/14 Time Seen by Provider: 05/16/21 16:45 Mode of Arrival: Ambulatory Source of Information: Patient Limitations: No Limitations Description of Symptoms (Recalled from ER Triage Doc. by RN): Pt c/o left thumb pain, bruising and swelling after smashing with a large piece of steel on Thursday - History of Present Illness HPI narrative: 40-year-old male presents to the emergency department with chief complaint of left thumb pain and swelling after smashing it with a 200 pound piece of steel at work approximately 2 days ago. Patient states that he had some hematoma under his nail, but has since been experiencing severe pain and swelling of these and was concerned that it might be broken. He states he has barely able to bend it, and feels like the swelling is getting worse. It is very tender to palpation. There is no obvious open wound present. 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 complaint: left thumb injury Onset (ago): day(s) (2) - Related Data Home Medications Medication I
[2021-05-16 17:37] VITALS: BP 136/101; PULSE 62; RESP 20; TEMP 36.6; O2SAT 99
== END 2021-05-16 17:38 | disposition home or self-care (01) ==
PROVIDERS: Emergency Provider Emergency Medicine; PCP Nurse Practitioner Family
DX: S67.01XA Crushing injury of right thumb, initial encounter (principal); W23.1XXA Caught, crushed, jammed, or pinched between stationary objects, initial encounter
CPT/HCPCS: 73130; 99282

== ENCOUNTER 2022-05-17 18:42 | Emergency (ER) | payer OTHER, SELFPAY ==
[2022-05-17 18:44] VITALS: BP 142/86; PULSE 97; RESP 16; TEMP 37.7; O2SAT 98; BMI 21.7
[2022-05-17 19:00] VITALS: BP 141/91; PULSE 103; O2SAT 97
[2022-05-17 19:02] LABS: Coronavirus 19, PCR Not Detected (NotDetected); Influenza A, PCR Not Detected (NotDetected); Influenza B, PCR Not Detected (NotDetected)
[2022-05-17 19:30] VITALS: BP 137/86; PULSE 103; O2SAT 98
--- NOTE | 2022-05-17 19:46 | PC.NURSE ---
Pt/family updated that we are waiting on swab results. No other needs voiced at this time.
--- NOTE | 2022-05-17 20:22 | HMH.EDURI ---
Discharge Plan Disposition Patient Disposition: Home, Self-Care Prescriptions Prescriptions: New prednisone [prednisone] 20 mg tablet 20 mg PO BID Qty: 10 0RF cephalexin [cephalexin] 500 mg capsule 500 mg PO TID Qty: 30 0RF prednisone [prednisone] 20 mg tablet 20 mg PO BID Qty: 10 0RF cephalexin [cephalexin] 500 mg capsule 500 mg PO TID Qty: 30 0RF prednisone [prednisone] 20 mg tablet 20 mg PO BID Qty: 10 0RF cephalexin [cephalexin] 500 mg capsule 500 mg PO TID Qty: 30 0RF No Action cholecalciferol (vitamin D3) 25 mcg (1,000 unit) capsule 25 mcg PO DAILY hydrocodone-acetaminophen 5-325 mg tablet 1 tab PO Q4-6H PRN propranolol 20 mg tablet 20 mg PO BID Qty: 180 3RF meloxicam 15 MG tablet 15 mg PO DAILY Referrals Follow up/Referrals: Merle Lopez APRN [Primary Care Provider] - See instructions Clinical Impressions Clinical Impression: Sinusitis Instructions Patient Instructions: DI for Sinusitis Discharge ED Provider: Dominick Medellin URI/Sore Throat HPI General Chief Complaint: Upper Respiratory Infection Stated Complaint: Headache,Chills,Bodyache Time Seen by Provider: 05/17/22 20:22 Mode of Arrival: Ambulatory Source of Information: Patient and Medical Record Limitations: No Limitations Description of Symptoms (Recalled from ER Triage Doc. by RN): pt c/o fever,chills, body aches, watery eyes x several days History of Present Illness HPI Narrative: sinus congestion and fever and achey over the last few days MD Complaint: fever, nasal congestion and sinus pain Onset (ago): day(s) Duration: intermittent Severity: moderate Able to tolerate fluids by mouth: Yes Associated symptoms: denies other symptoms Treatments prior to arrival: none Related Data Home Medications Medication Instructions Recorded Confirmed meloxicam 15 mg tablet 15 mg PO DAILY INFLAMMATION 04/05/18 01/01/21 cholecalciferol (vitamin D3) 25 25 mcg PO DAILY 12/04/20 01/01/21 mcg (1,000 unit) capsule hydrocodone 5 mg-acetaminophen 325 1 tab PO Q4-6H PRN 01/01/21 01/01/21 mg tablet Previous Rx's Medication Instructions Recorded propranolol 20 mg tablet 20 mg PO BID #180 tabs 01/01/21 cephalexin 500 mg capsule 500 mg PO TID #30 caps 05/17/22 cephalexin 500 mg capsule 500 mg PO TID #30 caps 05/17/22 cephalexin 500 mg capsule 500 mg PO TID #30 caps 05/17/22 prednisone 20 mg tablet 20 mg PO BID #10 tabs 05/17/22 prednisone 20 mg tablet 20 mg PO BID #10 tabs 05/17/22 prednisone 20 mg tablet 20 mg PO BID #10 tabs 05/17/22 Allergies Allergy/AdvReac Type Severity Reaction Status Date / Time No Known Allergies Allergy Verified 01/01/21 15:34 PFSH PFS Social History Smoking Status: Never smoker alcohol intake: never substance use type: denies use current occupational status: employed Travel in the last 8 weeks: None household members: spouse and children current occupation: AUTOMOTIVE caffeine: Yes ROS Obtained: Yes All systems reviewed & no additional complaints except as documented Physical Exam General General appearance: alert Head Head exam: normocephalic Eye Eye exam: Present PERRL and EOMI ENT ENT exam: Present mucous membranes moist Neck Neck exam: Present trachea midline Respiratory Respiratory exam: Present normal lung sounds bilaterally; Absent respiratory distress Cardiovascular Cardiovascular exam: Present regular rate Abdominal Exam Abdominal exam: Present soft Extremities Exam Extremities exam: Present normal inspection Back Exam Back exam: Absent CVA tenderness (R) Neurological Exam Neurological exam: Present alert, oriented X3 and CN II-XII intact; Absent motor sensory deficit Psychiatric Psychiatric exam: Present normal affect Skin Skin exam: Absent rash Medical Decision Making Medical Records Medical records reviewed: Yes I reviewed the patient's medical records. Dax Inquiry Pt receiving contr
[2022-05-17 20:35] VITALS: BP 137/86; PULSE 97; RESP 16; TEMP 37.7; O2SAT 97
== END 2022-05-17 20:41 | disposition home or self-care (01) ==
PROVIDERS: Emergency Medicine; Emergency Provider Emergency Medicine; PCP Nurse Practitioner Family
DX: J32.9 Chronic sinusitis, unspecified (principal)
CPT/HCPCS: 99283; C9803; U0003; U0005

== ENCOUNTER 2024-03-03 23:42 | Emergency (ER) | payer OTHER, SELFPAY ==
--- NOTE | 2024-03-03 23:41 | ECG_ITS ---
APPROVED REPORT Exam: Resting ECG HR:80 bpm ECG Measurements Heart Rate 80 AXES DE 174 P 79 QRSd 98 QRS 105 QT 378 T 77 QTc 414 Conclusion SINUS RHYTHM RIGHT AXIS DEVIATION [QRS AXIS > 100] ABNORMAL ECG Electronically signed by : GATITO MCELROY, 03/05/2024 07:37:55
[2024-03-03 23:44] VITALS: BP 138/87; PULSE 92; RESP 18; TEMP 36.8; O2SAT 100; BMI 22.4
--- NOTE | 2024-03-03 23:47 | XR_ITS ---
PROCEDURE INFORMATION: Exam: XR Chest Exam date and time: 03/03/2024 11:59 PM Age: 43 years old Clinical indication: Pain; Chest pressure; Additional info: Chest pain TECHNIQUE: Imaging protocol: Radiologic exam of the chest. Views: 2 views. COMPARISON: CR CXR1VP XR chest portable 04/04/2018 4:27 PM FINDINGS: Lungs: Unremarkable. No consolidation. Pleural spaces: Unremarkable. No pleural effusion. No pneumothorax. Heart/Mediastinum: Unremarkable. No cardiomegaly. Vasculature: Unremarkable. Bones/joints: Unremarkable. IMPRESSION: No acute findings.
--- NOTE | 2024-03-03 23:47 | CT_ITS ---
PROCEDURE INFORMATION: Exam: CTA Neck With Contrast Exam date and time: 03/04/2024 12:19 AM Age: 43 years old Clinical indication: Other: Tremors; Additional info: Severe chest/back pain sudden onset, tremors TECHNIQUE: Imaging protocol: Computed tomographic angiography of the neck with contrast. Exam focused on the cervical segments of the vasculature. 3D rendering (Not supervised by radiologist): MIP and/or 3D reconstructed images were created by the technologist. Radiation optimization: All CT scans at this facility use at least one of these dose optimization techniques: automated exposure control; mA and/or kV adjustment per patient size (includes targeted exams where dose is matched to clinical indication); or iterative reconstruction. Contrast material: ISOVUE; Contrast volume: 80 ml; Contrast route: INTRAVENOUS (IV); COMPARISON: CT ANGIO HEAD 03/04/2024 12:19 AM FINDINGS: Right common carotid artery: No stenosis. No dissection or occlusion. Right internal carotid artery: No stenosis of the extracranial segment. No dissection or occlusion. Right external carotid artery: No occlusion or stenosis of the origin. Left common carotid artery: No stenosis. No dissection or occlusion. Left internal carotid artery: No stenosis of the extracranial segment. No dissection or occlusion. Left external carotid artery: No occlusion or stenosis of the origin. Right vertebral artery: No stenosis. No dissection or occlusion. Left vertebral artery: No stenosis. No dissection or occlusion. Soft tissues: Normal. No significant soft tissue swelling. Bones/joints: No acute osseous abnormality. Lungs: Minimal biapical scarring. Lung apices are otherwise clear. IMPRESSION: No stenosis, occlusion, or dissection. REFERENCES: NASCET CRITERIA. The degree of stenosis in the cervical segment of the internal carotid artery is based on NASCET criteria. Normal is no stenosis. Mild is less than 50% stenosis. Moderate is 50-69% stenosis. Severe is 70% to 99% stenosis. Total occlusion is no detectable patent lumen.
--- NOTE | 2024-03-03 23:47 | CT_ITS ---
PROCEDURE INFORMATION: Exam: CTA Head With Contrast, Arteriography Exam date and time: 03/04/2024 12:19 AM Age: 43 years old Clinical indication: Pain; Other: Tremors; Additional info: Severe chest/back pain sudden onset, tremors TECHNIQUE: Imaging protocol: Computed tomographic angiography of the head with contrast. Exam focused on the arteries. 3D rendering (Not supervised by radiologist): MIP and/or 3D reconstructed images were created by the technologist. Radiation optimization: All CT scans at this facility use at least one of these dose optimization techniques: automated exposure control; mA and/or kV adjustment per patient size (includes targeted exams where dose is matched to clinical indication); or iterative reconstruction. Contrast material: ISOVUE; Contrast volume: 80 ml; Contrast route: INTRAVENOUS (IV); COMPARISON: CT HEAD/BRAIN WO CON 03/04/2024 12:17 AM FINDINGS: ANTERIOR CIRCULATION: Right internal carotid artery: Intracranial segment is patent with no significant stenosis. No aneurysm. Right middle cerebral artery: No occlusion or significant stenosis. No aneurysm. Right anterior cerebral artery: No occlusion or significant stenosis. No aneurysm. Left internal carotid artery: Intracranial segment is patent with no significant stenosis. No aneurysm. Left middle cerebral artery: No occlusion or significant stenosis. No aneurysm. Left anterior cerebral artery: No occlusion or significant stenosis. No aneurysm. POSTERIOR CIRCULATION: Right vertebral artery: No occlusion or significant stenosis. No aneurysm. Left vertebral artery: No occlusion or significant stenosis. No aneurysm. Basilar artery: No occlusion or significant stenosis. No aneurysm. Right posterior cerebral artery: Persistent origin of right posterior cerebral artery, a normal anatomic variant. No occlusion or significant stenosis. No aneurysm. Left posterior cerebral artery: No occlusion or significant stenosis. No aneurysm. Left posterior communicating artery: No occlusion or significant stenosis. No aneurysm. Veins: No dural venous sinus thrombosis. Brain: No definite mass, mass effect, or midline shift. Cerebral ventricles: No ventriculomegaly. Bones/joints: Unremarkable. No acute fracture. Soft tissues: Unremarkable. IMPRESSION: No large vessel stenosis or occlusion.
--- NOTE | 2024-03-03 23:47 | CT_ITS ---
PROCEDURE INFORMATION: Exam: CTA Abdomen and Pelvis With Contrast Exam date and time: 03/04/2024 12:24 AM Age: 43 years old Clinical indication: Other: Back pain; Additional info: Severe chest/back pain sudden onset TECHNIQUE: Imaging protocol: Computed tomographic angiography of the abdomen and pelvis with contrast. Exam focused on the arteries. 3D rendering (Not supervised by radiologist): MIP and/or 3D reconstructed images were created by the technologist. Radiation optimization: All CT scans at this facility use at least one of these dose optimization techniques: automated exposure control; mA and/or kV adjustment per patient size (includes targeted exams where dose is matched to clinical indication); or iterative reconstruction. Contrast material: ISOVUE; Contrast volume: 80 ml; Contrast route: INTRAVENOUS (IV); COMPARISON: CT ANGIO CHEST 03/04/2024 12:24 AM FINDINGS: Aorta: No aortic aneurysm. No aortic dissection. Celiac trunk and mesenteric arteries: No occlusion or significant stenosis. Renal arteries: No occlusion or significant stenosis. Right iliac arteries: No occlusion or significant stenosis. Left iliac arteries: No occlusion or significant stenosis. Liver: No mass. Gallbladder and biliary ducts: Unremarkable. No calcified stones. No ductal dilation. Pancreas: Unremarkable. No mass. No ductal dilation. Spleen: Unremarkable. No splenomegaly. Adrenal glands: Unremarkable. No mass. Kidneys and ureters: Unremarkable. No solid mass. No hydronephrosis. Stomach and bowel: Unremarkable. No obstruction. No mucosal thickening. Appendix: No evidence of appendicitis. Intraperitoneal space: Unremarkable. No free air. No significant fluid collection. Lymph nodes: Unremarkable. No enlarged lymph nodes. Urinary bladder: Unremarkable. No mass. Reproductive: Unremarkable as visualized. Bones/joints: No acute fracture. Soft tissues: Unremarkable. IMPRESSION: Unremarkable CTA.
--- NOTE | 2024-03-03 23:47 | CT_ITS ---
PROCEDURE INFORMATION: Exam: CTA Chest With Contrast Exam date and time: 03/04/2024 12:24 AM Age: 43 years old Clinical indication: Pain; Chest pressure; Additional info: Severe chest/back pain sudden onset TECHNIQUE: Imaging protocol: Computed tomographic angiography of the chest with contrast. Exam focused on the arteries. 3D rendering (Not supervised by radiologist): MIP and/or 3D reconstructed images were created by the technologist. Radiation optimization: All CT scans at this facility use at least one of these dose optimization techniques: automated exposure control; mA and/or kV adjustment per patient size (includes targeted exams where dose is matched to clinical indication); or iterative reconstruction. Contrast material: ISOVUE; Contrast volume: 80 ml; Contrast route: INTRAVENOUS (IV); COMPARISON: CR XR CHEST 2V 03/03/2024 11:59 PM FINDINGS: Pulmonary arteries: Normal. No pulmonary emboli. Aorta: Unremarkable. No aortic aneurysm. No aortic dissection. Lungs: Calcified granuloma left lower lobe. Pleural spaces: Unremarkable. No pneumothorax. No pleural effusion. Heart: Unremarkable. No cardiomegaly. No pericardial effusion. Lymph nodes: Calcified left hilar and mediastinal lymph nodes. Bones/joints: Unremarkable. No acute fracture. Soft tissues: Mild bilateral gynecomastia. IMPRESSION: 1. No acute findings. No aortic dissection or pulmonary embolus. 2. Findings consistent with prior granulomatous exposure.
--- NOTE | 2024-03-03 23:47 | CT_ITS ---
PROCEDURE INFORMATION: Exam: CT Head Without Contrast Exam date and time: 03/04/2024 12:17 AM Age: 43 years old Clinical indication: Other: Tremors; Additional info: Tremors (baseline), HX stroke TECHNIQUE: Imaging protocol: Computed tomography of the head without contrast. Radiation optimization: All CT scans at this facility use at least one of these dose optimization techniques: automated exposure control; mA and/or kV adjustment per patient size (includes targeted exams where dose is matched to clinical indication); or iterative reconstruction. COMPARISON: MR HEAD/BRAIN WO CON 12/11/2020 4:02 PM FINDINGS: Brain: No acute intracranial hemorrhage or acute large territory infarct. Unchanged small cystic focus in the inferior left basal ganglia, possibly a prominent perivascular space, choroidal fissure cyst, or old lacunar infarct. No significant white matter disease. No midline shift or mass effect. Cerebral ventricles: No ventriculomegaly. Paranasal sinuses: Mild mucosal thickening in the maxillary, ethmoid, and sphenoid sinuses. No air-fluid levels. Mastoid air cells: Visualized mastoid air cells are well-aerated. Orbital cavities: No acute intraorbital abnormality. Globes are intact and symmetric. Bones: No acute osseous abnormality. Soft tissues: Unremarkable. Other findings: No visible contraindication to MRI on this exam. IMPRESSION: No acute intracranial abnormality. ASSESSMENT: ASPECTS ([place] Stroke Program Early CT Score) is 10.
[2024-03-03] MEDS: ASPIRIN 81MG CHEWABLE TABLET 324 MG PO (23:56)
[2024-03-04] VITALS (7 sets, daily range): BP systolic 114–141; BP diastolic 72–88; PULSE 62–77; RESP 6–17; TEMP 36.8; O2SAT 93–99
--- NOTE | 2024-03-04 00:01 | HMH.EDCP ---
Discharge Plan Disposition Patient Disposition: Home, Self-Care Condition: Good Prescriptions Prescriptions: No Action cholecalciferol (vitamin D3) 25 mcg (1,000 unit) capsule 25 mcg PO DAILY hydrocodone-acetaminophen 5-325 mg tablet 1 tab PO Q4-6H PRN propranolol 20 mg tablet 20 mg PO BID Qty: 180 3RF meloxicam 15 MG tablet 15 mg PO DAILY prednisone [prednisone] 20 mg tablet 20 mg PO BID Qty: 10 0RF cephalexin [cephalexin] 500 mg capsule 500 mg PO TID Qty: 30 0RF prednisone [prednisone] 20 mg tablet 20 mg PO BID Qty: 10 0RF cephalexin [cephalexin] 500 mg capsule 500 mg PO TID Qty: 30 0RF prednisone [prednisone] 20 mg tablet 20 mg PO BID Qty: 10 0RF cephalexin [cephalexin] 500 mg capsule 500 mg PO TID Qty: 30 0RF Referrals Follow up/Referrals: Merle Lopez APRN [Primary Care Provider] - See instructions Tahir Curry MD [Staff Physician] - See instructions (chest/back pain with reassuring ER eval) Activity Restrictions/Add. Instructions Additional Instructions/Restrictions: You were evaluated in the ER and are appropriate for discharge at this time. Follow-up with cardiology, make an appoint with them soon as possible. Also make an appoint with your primary care doctor for reevaluation in a few days. Return to the ER with new, worsening, or otherwise concerning symptoms. Clinical Impressions Clinical Impression: Chest pain Print Language Print Language: [place] Discharge ED Provider: Jim Quiroz [facility] General Chief Complaint: Shortness of Breath/Dyspnea Stated Complaint: sob Time Seen by Provider: 03/03/24 23:47 Mode of Arrival: EMS Source of Information: Patient Limitations: No Limitations Description of Symptoms (Recalled from ER Triage Doc. by RN): Pt reports to ED via EMS with cc of AKMERON. Pt states when he called EMS he was having severe sharp pain between shoulder blades and mid back. Pt states the pain has now resolved. Pt has tremors but states he has had tremors. Pt states having a tight jaw. History of Present Illness HPI narrative: 43-year-old male presents to the ER with complaints of shortness of breath and severe sharp pain between the shoulder blades and mid back. Patient states the pain was sudden onset, 10 out of 10 and continued to be 10 out of 10 for more than an hour. Patient states the pain spontaneously resolved upon arrival to the ER. 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 He is describing a tight jaw but states this is often associated with his tremors which he states were worse during the acute pain but are now improved as the pain resolved. He states he had been prescribed propranolol for tremors previously however each time he took the propranolol it made him have chest pain so he is not taking it. He states he did not take this medication tonight. Patient denies taking any medications prior to arrival. Patient denies any headache, nausea, dizziness, numbness, tingling, weakness. His tremors are at baseline. His pain is resolved. No recent illness. Related Data Home Medications ?Medication ?Instructions ?Recorded ?Confirmed meloxicam 15 mg tablet 15 mg PO DAILY INFLAMMATION 04/05/18 01/01/21 cholecalciferol (vitamin D3) 25 25 mcg PO DAILY 12/04/20 01/01/21 mcg (1,000 unit) capsule hydrocodone 5 mg-acetaminophen 325 1 tab PO Q4-6H PRN 01/01/21 01/01/21 mg tablet Previous Rx's ?Medication ?Instructions ?Recorded propranolol 20 mg tablet 20 mg PO BID #180 tabs 01/01/21 cephalexin 500 mg capsule 500 mg PO TID #30 caps 05/17/22 cephalexin 500 mg capsule 500 mg PO TID #30 caps 05/17/22 cephalexin 500 mg capsule 500 mg PO TID #30 caps 05/17/22 prednisone 20 mg tablet 20 mg PO BID #10 tabs 05/17/22 prednisone 20 mg tablet 20 mg PO BID #10 tabs 05/17/22 prednisone 20 mg tablet 20 mg PO BID #10 tabs 05/17/22 Allergies Allergy/AdvReac Type Severity Reaction Status Date / Time No Known Allergies Allergy Verified 01/01/21 15:34 [facility] Disclaimer: The information contained in this section may have been updated after the patient was seen, as this information can be updated by other users. Social History Smoking Status: Never smoker alcohol intake: never substance use type: denies use current occupational status: employed Travel in the last 8 weeks: None household members: spouse and children current occupation: AUTOMOTIVE caffeine: Yes ROS Obtained: Yes All systems reviewed & no additional complaints except as documented Positive ROS per HPI Physical Exam General General appearance: alert and in no apparent distress Head Head exam: atraumatic and normocephalic Eye Eye exam: Present PERRL and EOMI; Absent nystagmus ENT ENT exam: Present mucous membranes moist Neck Neck exam: Present normal inspection and full ROM Chest Chest inspection: Present symmetric chest wall rise Respiratory Respiratory exam: Present normal lung sounds bilaterally; Absent respiratory distress, wheezes or stridor Cardiovascular Cardiovascular exam: Present regular rate and normal rhythm Abdominal Exam Abdominal exam: Present soft; Absent distention, tenderness, guarding or rebound Extremities Exam Extremities exam: Present full ROM; Absent edema Back Exam Back exam: Present full ROM; Absent tenderness or vertebral tenderness Neurological Exam Neurological exam: Present alert, oriented X3, CN II-XII intact and other (Mild bilateral upper extremity tremor present, at baseline); Absent motor sensory deficit (No deficits, no pronator drift, normal [id number] and [id number]) Psychiatric Psychiatric exam: Present normal affect and normal mood Skin Skin exam: Present warm and dry HEART Score HEART Score HEART Score assessment performed?: Yes History (anamnesis): Slightly suspicious ECG: Non-specific disturbance Age: <45 years Risk factors: 1-2 risk factors Troponin: </= normal limit HEART Score: 2 Critical Care Critical Care Time Critical Care Time: No Medical Decision Making Medical Records Medical records reviewed: Yes I reviewed the patient's medical records. MR Comment: Patient followed with Dr. Camargo with neurology for essential tremor. He had been prescribed propranolol in 2020 according to progress note from her, but states he is not taking it. Dax Inquiry Pt receiving controlled substance: No Vital Signs Vital Signs: 03/03/24 23:44 03/04/24 00:00 03/04/24 00:30 Temperature 98.2 F Temperature Source Oral Pulse Rate 76 77 Pulse Rate [Left Radial] 92 H Respiratory Rate 18 17 6 L Blood Pressure 141/88 H 123/79 Blood Pressure [Right Arm] 138/87 Blood Pressure Mean [Right Arm] 104 Blood Pressure Source Blood Pressure Source [Right Arm] Automatic Cuff Blood Pressure Position 02 Sat by Pulse Oximetry 100 99 93 L Oxygen Delivery Method Room Air 03/04/24 01:00 03/04/24 01:30 03/04/24 02:00 Temperature Temperature Source Pulse Rate 74 72 66 Pulse Rate [Left Radial] Respiratory Rate 14 13 14 Blood Pressure 119/74 114/72 117/86 Blood Pressure [Right Arm] Blood Pressure Mean [Right Arm] Blood Pressure Source Blood Pressure Source [Right Arm] Blood Pressure Position 02 Sat by Pulse Oximetry 95 98 98 Oxygen Delivery Method 03/04/24 02:30 03/04/24 02:54 Temperature 98.2 F Temperature Source Oral Pulse Rate 62 67 Pulse Rate [Left Radial] Respiratory Rate 13 16 Blood Pressure 120/86 120/86 Blood Pressure [Right Arm] Blood Pressure Mean [Right Arm] Blood Pressure Source Automatic Cuff Blood Pressure Source [Right Arm] Blood Pressure Position Sitting 02 Sat by Pulse Oximetry 98 Oxygen Delivery Method Room Air Lab Data Labs: Lab Results 03/04/24 00:00: WBC 7.6, RBC 4.93, Hgb 14.2, Hct 43.5, MCV 88.2, MCH 28.8, MCHC 32.6, RDW 13.9, Plt Count 293, MPV 9.3, Neut % (Auto) 52.2, Lymph % (Auto) 27.7, [place] % (Auto) 7.9, Eos % (Auto) 10.9, Baso % (Auto) 1.3, Neut # (Auto) 3.9, Lymph # (Auto) 2.1, [place] # (Auto) 0.6, Eos # (Auto) 0.8 H, Baso # (Auto) 0.1, PT 10.4, INR 0.92, Sodium 138, Potassium 3.1 L, Chloride 109 H, Carbon Dioxide 23, Anion Gap 9.1, BUN 19, Creatinine 0.90, Estimated Creat Clear 93, Estimated GFR 93, Est GFR ( Amer) 112, Glucose 103 H, Calcium 9.4, Total Bilirubin 0.6, AST 36, ALT 28, Alkaline Phosphatase 53, Troponin I < 0.01, Total Protein 7.4, Albumin 4.3, Globulin 3.1, Albumin/Globulin Ratio 1.4 03/04/24 02:18: Troponin I < 0.01 03/04/24 00:00 03/04/24 00:00 Response Orders (Tests/Meds): ED MEDICATIONS Discontinued Medications Generic Name Dose Route Start Last Admin Trade Name Freq PRN Reason Stop Dose Admin Aspirin 324 mg 03/03/24 23:47 03/03/24 23:56 Aspirin 81mg Chewable Tablet PO 03/03/24 23:48 324 mg ONCE ONE Administration Iopamidol 160 ml 03/04/24 00:33 03/04/24 00:34 Iopamidol-370 (76%);100ml Bottle IV 03/04/24 00:34 160 ml ONCE ONE Administration Sodium Chloride 50 ml 03/04/24 00:33 03/04/24 00:34 0.9 % Sodium Chloride 50 Ml Vial IV 03/04/24 00:34 50 ml ONCE ONE Administration Sodium Chloride 10 ml 03/04/24 00:33 03/04/24 00:34 Sodium Chloride 0.9% 10ml Syr (Rad Only) IV 03/04/24 00:34 10 ml ONCE ONE Administration ORDERS Category Date Time Status CT angio abdomen pelvis Stat Cat Scan 03/03/24 23:[address] angio chest - dissection Stat Cat Scan 03/03/24 23:[address] angio head Stat Cat Scan 03/03/24 23:[address] angio neck Stat Cat Scan 03/03/24 23:[address] head/brain wo con Stat Cat Scan 03/03/24 23:47 Completed XR chest 2V Stat Exams 03/03/24 23:47 Completed Complete Blood Count Auto Diff Stat Lab 03/03/24 23:47 Completed Comprehensive Metabolic Panel Stat Lab 03/03/24 23:47 Completed Prothrombin Time INR Stat Lab 03/03/24 23:47 Completed Troponin I Q3H Lab 03/03/24 23:47 Completed Troponin I Q3H Lab 03/04/24 02:18 Completed Troponin I Q3H Lab 03/04/24 05:47 Ordered MDM Narrative Medical Decision Narrative: In summary, this 43-year-old male presents to the emergency department today with severe onset chest/mid back pain, shortness of breath. On initial evaluation patient is hemodynamically stable, afebrile, chest pain is resolved, cardiopulmonary exam reassuring, tremor present but at baseline, no neurologic deficits, GCS 15. Differential diagnosis includes but is not limited to ACS, dissection, arrhythmia, electrolyte abnormality, esophageal spasm, anxiety. Based on these concerns, I ordered cardiac workup, CT angiography, serum labs. ECG personally interpreted demonstrates normal sinus rhythm, rate 80, right axis deviation, normal TX and QTc, no STEMI. Patient received aspirin for treatment. Labs personally reviewed demonstrate no leukocytosis or anemia, normal platelets, PT/INR normal, CMP with mild hypokalemia, patient is receiving oral repletion. Initial troponin undetectably low at less than 0.01, serial troponin pending. XR personally interpreted demonstrates no acute thoracic abnormality. CT head as well as CT angiography of the chest, abdomen, pelvis were personally interpreted, I do not appreciate acute aortic injury, no acute intracranial abnormality such as bleed or midline shift. See radiology reads for final interpretations. CT angiography of the head and neck were also noted to be negative without acute abnormality. Repeat troponin also undetectably low, patient has remained asymptomatic. Repeat ECG personally interpreted demonstrates no dynamic changes from the initial ECG, sinus rhythm, rate 70, right axis deviation, normal TX and QTc, no STEMI. Patient is appropriate for discharge at this time since he continues to be asymptomatic and has reassuring workup. He was referred to cardiology for outpatient follow-up. Patient was given instructions on symptomatic management, follow up instructions, and return precautions for the emergency department. Patient indicated understanding and was discharged in stable condition.
[2024-03-04 00:21] LABS: Potassium 3.1 mmoL/L (3.5-5.1); Sodium 138 mmol/L (136-145)
[2024-03-04 00:22] LABS: Alanine Aminotransferase 28 U/L (12-78); Albumin Level 4.3 g/dl (3.5-5.0); Albumin/Globulin Ratio 1.4 (1.1-1.8); Anion Gap 9.1 mEq/L (5-15); Aspartate Amino Transferase 36 U/L (17-59); Bilirubin,Total 0.6 mg/dl (0.2-1.3); Blood Urea Nitrogen 19 mg/dl (9-20); Calcium 9.4 mg/dl (8.4-10.2); Carbon Dioxide 23 mmol/L (22.0-30.0); Chloride 109 mmol/L (98-107); Creatinine Clearance Estimated 93 mL/min (50-200); Estimated Glomerular Filt Rate 93 ml/min (>60); GFR (African American) 112 ML/MIN (>60); Globulin 3.1 g/dL (1.3-3.2); Glucose 103 mg/dl (74-100); Total Protein,Serum 7.4 g/dl (6.3-8.2)
[2024-03-04 00:23] LABS: Alkaline Phosphatase 53 U/L (38-126)
[2024-03-04 00:24] LABS: INR 0.92 (0.9-1.1); Prothrombin Time 10.4 seconds (10.1-12.5)
[2024-03-04 00:27] LABS: Basophils # 0.1 K/mm3 (0-0.2); Basophils % 1.3 % (0.1-2.0); Eosinophils # 0.8 K/mm3 (0.0-0.4); Eosinophils % 10.9 % (0.1-12.0); Hematocrit 43.5 % (42.0-52.0); Hemoglobin 14.2 g/dL (14.1-18.0); Lymphocytes # 2.1 K/mm3 (0.7-4.5); Lymphocytes % 27.7 % (10-50); Mean Corpuscular HGB Conc 32.6 g/dL (31.8-35.4); Mean Corpuscular Hemoglobin 28.8 pg (27.0-31.2); Mean Corpuscular Volume 88.2 fl (80-94); Mean Platelet Volume 9.3 fl (7.4-10.4); Monocytes # 0.6 K/mm3 (0.1-1.0); Monocytes % 7.9 % (1.7-9.3); Neutrophils # 3.9 K/mm3 (1.8-7.8); Neutrophils % 52.2 % (37.0-80.0); Platelet Count 293 K/mm3 (142-424); Red Blood Count 4.93 M/mm3 (4.60-6.20); Red Cell Distribution Width 13.9 % (11.5-17.5); White Blood Count 7.6 K/mm3 (4.8-10.8)
[2024-03-04 00:33] LABS: Troponin I < 0.01 ng/ml (0.00-0.034)
[2024-03-04] MEDS: SODIUM CHLORIDE 0.9% 10ML SYR (RAD ONLY) 10 ML IV (00:34)
[2024-03-04] MEDS: 0.9 % SODIUM CHLORIDE 50 ML VIAL IV (00:34)
[2024-03-04] MEDS: IOPAMIDOL-370 (76%);100ML BOTTLE 160 ML IV (00:34)
[2024-03-04 02:46] LABS: Troponin I < 0.01 ng/ml (0.00-0.034)
--- NOTE | 2024-03-04 02:51 | ECG_ITS ---
APPROVED REPORT Exam: Resting ECG HR:70 bpm ECG Measurements Heart Rate 70 AXES NM 168 P 60 QRSd 101 QRS 99 QT 402 T 66 QTc 423 Conclusion SINUS RHYTHM WITH SINUS ARRHYTHMIA BORDERLINE RIGHT AXIS DEVIATION [QRS AXIS > 90] Electronically signed by : GATITO MCELROY, 03/05/2024 07:38:10
== END 2024-03-04 03:02 | disposition home or self-care (01) ==
PROVIDERS: Emergency Provider Emergency Medicine; PCP Nurse Practitioner Family
DX: R07.9 Chest pain, unspecified (principal); R06.02 Shortness of breath; E87.6 Hypokalemia; Z86.73 Personal history of transient ischemic attack (TIA), and cerebral infarction without residual deficits
CPT/HCPCS: 70450; 70496; 70498; 71046; 71275; 74174; 80053; 84484; 85025; 85610; 93005; 99285; Q9967

== ENCOUNTER 2024-10-09 20:50 | Emergency (ER) | payer SELFPAY ==
--- OUTSIDE RECORDS SUMMARY | 2024-10-09 21:00 | XMS_ITS | Clinical Summary ---
Author Organization [facility] , [facility] Address [address] [place] [address] Phone Care Team Providers Care Insulation Packer Name Role Phone DIAMOND NICHOLS Unavailable [phone] John LOCKE, Esa Koehler Unavailable [phone] Reason for Visit and Chief Complaint IN HOUSE REFERRAL Problems Includes: Problems addressed during this encounter and other active Problems All Visits Onset Date Resolved Date Provider Condition S tatus Lower Back Pain 12/13/2020 Esa Lopez MD Act lynette Last Documented On 1:17PM ; [facility] Plan of Treatment Urine drug screen is compliant today. OR to is low. He complains of chronic low back pain which radiates in the right leg and L4-5 S1 distribution with tingling and numbness. Also bilateral lumbar facet joint and at L3-4-5 levels. PT, bed rest and and says did not help above symptoms. Dr. Lopez did not associate this time instead of commended pain management and injectable therapy. My scan lumbar spine showed disc bulges, degenerative disc disease and facet joint arthritis at L4-5 and S1 levels. Schedule lumbar epidural injection in 3 weeks. He will need right L4-5 selective nerve block and diagnostic medial branch bilateral L3-4-5 levels. We will consider mild pain medication if injectable therapy fails. Pain medication prescribed today - Last Documented On 02/08/2021 2:53PM ; [facility] Assessments Includes: Assessments from this encounter Findings Chronic low back pain. Radicular pain in right leg in L4-5-S1 distribution of tingling numbness. Bilateral lumbar facet joint arthritis. - Last Documented On 02/08/2021 2:53PM ; [facility] Medical Equipment - Implanted Devices Includes: Current Devices No Medical Equipment Recorded Medications Includes: Medications discussed during this encounter and other current Medications Current Medications (continue as prescribed) Propranolol HCl 20 MG Oral Tablet 12/04/2020 Provide r: Diagnosis: Last Documented On 1 1:51PM By Teodora Gonzalez ; [facility] Meloxicam 15 MG Oral Tablet 11/23/2020 Provider: DIAMOND NICHOLS Diagnosis: Last Documented On 1 1:51PM By Teodora Gonzalez ; [facility] traMADol HCl 50 MG Oral Tablet 11/23/2020 Provider: DIAMOND NICHOLS Diagnosis: Last Documented On 1 1:51PM By Teodora Gonzalez ; [facility], [facility] Medications Administered Includes: Administered Medications from this encounter No Administered Medications Recorded Results Includes: Results discussed during this encounter No Results Recorded For Specified Dates History of Present Illness Includes: History of Present Illness from this encounter ISSAC Posey is a 40 year old male. - Symptoms Right leg numbness, Pain shoots form one area to another. - Allergy list reviewed - Problem list reviewed - Medication reconciliation performed - Sharp pain Symptoms - Pain is throbbing - Patient pain level from 1-10: 7 - No previous treatment. Pain Medication: Last Dose: Date/Time of Last Dose: Current Pain(1-10): Average Pain (1-10): Worse Pain (1-10): Previous Pain Management: Yes one month treatment with [facility] Last Time Seen: Treatments: Pain medication Reason for leaving: PCP ADL's affected by pain: All MVA related: No Lawsuit w/Physician: No Previous Surgeries: No Previous Physical Therapy: No Social History Description Last Updated Exercising regularly 02/08/2021 Last Documented On 1 2:53PM ; [facility] Not using alcohol 02/08/2021 Last Documented On 1 2:53PM ; [facility] Caffeine use 12/13/2020 Last Documented On 1 2:41PM ; [facility] Yes, current smoker. 12/13/2020 Last Documented On 1 2:41PM ; [facility] Non-smoker 12/13/2020 Last Documented On 1 2:41PM ; [facility], [facility] Smoking Status Unknown Medical History Includes: Medical History addressed during this encounter Description Last Updated No recent immunization for flu 1 Last Documented On 1 2:53PM ; [facility] No recent immunization for pneumococcal pneumonia 02/08/2021 Last Documented On 1 2:53PM ; [facility], [facility] Family History Includes: Family History addressed during this encounter Description Last Updated Diabetes mellitus 12/13/2020 Last Documented On 1 2:41PM ; [facility] Family history of rheumatoid arthritis 0 12/13/2020 Last Documented On 1 2:41PM ; [facility] Stroke / Seizures 12/13/2020 Last Documented On 1 2:41PM ; [facility] Family history of heart disease 12/14/19 21 Last Documented On 1 2:41PM ; [facility] Review of Systems Includes: Review of Systems from this encounter No Review of Systems Recorded Mental Status Includes: Mental Status from this encounter No Mental Status Recorded Functional Status Includes: Functional Status from this encounter No Functional Status Recorded Physical Exam Includes: Physical Exam from this encounter Allergies Includes: Active Allergies No Known Allergies Encounters Encounter Provider Location Date Check-In Time Check-Out Time Diagnosis IN HOUSE REFERRAL Walter Navarro MD [facility] 02/09/20 2:04PM 2:42PM Insurance Includes: Active Insurance Policies Plan Name Member ID Group # Subscriber Relationship Effect lynette Dates 1 - HUMANA [id number] Michael Posey Self 05/22 - Unknown 2 - [employer] [facility] [id number] Michael Posey Self 06/22/19 21 - Unknown Clinical Notes Includes: Clinical Notes from this encounter No Clinical Notes Recorded
--- OUTSIDE RECORDS SUMMARY | 2024-10-09 21:00 | XMS_ITS ---
Care Plan - [facility], [facility] Created on: October 09, 2024 Michael Posey : 1980 Sex: Male Author Organization [facility] , [facility] Address [address] [place] [address] Phone Care Team Providers Care Helicopter Specialist Name Role Phone DIAMOND NICHOLS Unavailable [phone] John LOCKE, Esa Koehler Unavailable [phone]
--- OUTSIDE RECORDS SUMMARY | 2024-10-09 21:00 | XMS_ITS | Clinical Summary ---
Author Organization [email or web address] , [facility] Address [address] [place] [address] Phone Care Team Providers Care Victims Advocate Clerk/Specialist Name Role Phone DIAMOND NICHOLS Unavailable [phone] John LOCKE, Esa Koehler Unavailable [phone] Reason for Visit and Chief Complaint Epidural Steroid Injection Problems Includes: Problems addressed during this encounter and other active Problems All Visits Onset Date Resolved Date Provider Condition S tatus Lower Back Pain 12/13/2020 sEa Lopez MD Act lynette Last Documented On 1 1:17PM ; [facility] Plan of Treatment No Plan of Treatment Recorded Assessments Includes: Assessments from this encounter No Assessments Recorded Medical Equipment - Implanted Devices Includes: Current Devices No Medical Equipment Recorded Medications Includes: Medications discussed during this encounter and other current Medications Current Medications (continue as prescribed) Propranolol HCl 20 MG Oral Tablet 12/04/2020 Provide r: Diagnosis: Last Documented On 1 1:51PM By Teodora Ortega [facility] Meloxicam 15 MG Oral Tablet 11/23/2020 Provider: DIAMOND NICHOLS Diagnosis: Last Documented On 1 1:51PM By Teodora Ortega [facility] traMADol HCl 50 MG Oral Tablet 11/23/2020 Provider: DIAMOND NICHOLS Diagnosis: Last Documented On 1 1:51PM By Teodora Gonzalez ; [facility] Medications Administered Includes: Administered Medications from this encounter No Administered Medications Recorded Results Includes: Results discussed during this encounter No Results Recorded For Specified Dates History of Present Illness Includes: History of Present Illness from this encounter No History of Present Illness Recorded Social History No Social History Recorded - Smoking Status Unknown Medical History Includes: Medical History addressed during this encounter No Medical History Recorded Family History Includes: Family History addressed during this encounter No Family History Recorded Review of Systems Includes: Review of Systems from this encounter No Review of Systems Recorded Mental Status Includes: Mental Status from this encounter No Mental Status Recorded Functional Status Includes: Functional Status from this encounter No Functional Status Recorded Physical Exam Includes: Physical Exam from this encounter No Physical Exam Recorded Allergies Includes: Active Allergies No Known Allergies Encounters Encounter Provider Location Date Check-In Time Check-Out Time Diagnosis Epidural Steroid Injection Walter Navarro MD [facility] 03/01/20 21 2:02PM 2:29PM Insurance Includes: Active Insurance Policies Plan Name Member ID Group # Subscriber Relationship Effect lynette Dates 1 - HUMANA [id number] Michael Posey Self 05/22 - Unknown 2 - [employer] [facility] [id number] Michael Posey Self 06/22/19 21 - Unknown Clinical Notes Includes: Clinical Notes from this encounter No Clinical Notes Recorded
--- OUTSIDE RECORDS SUMMARY | 2024-10-09 21:01 | XMS_ITS ---
Author Organization [facility] , [facility] Address [address] [place] [address] Phone Care Team Providers Care Fine Arts Chair Name Role Phone DIAMOND NICHOLS Unavailable [phone] John LOCKE, Esa Koehler Unavailable [phone] Problems Includes: Active, inactive, and resolved Problems All Visits Onset Date Resolved Date Provider Condition S tatus Lower Back Pain 12/13/2020 Esa Lopez MD Act lynette Last Documented On 1 1:17PM ; [facility], [facility] Plan of Treatment No Plan of Treatment Recorded Assessments Includes: Assessments for all patient encounters No Assessments Recorded Medical Equipment - Implanted Devices Includes: Current and historical Devices No Medical Equipment Recorded Medications Includes: Current and historical Medications Current Medications (continue as prescribed) Propranolol HCl 20 MG Oral Tablet 12/04/2020 Provide r: Diagnosis: Last Documented On 1 1:51PM By Teodora Gonzalez ; [facility], [facility] Meloxicam 15 MG Oral Tablet 11/23/2020 Provider: DIAMOND NICHOLS Diagnosis: Last Documented On 1 1:51PM By Teodora Ortega [facility] traMADol HCl 50 MG Oral Tablet 11/23/2020 Provider: DIAMOND NICHOLS Diagnosis: Last Documented On 1 1:51PM By Teodora Gonzalez ; [facility], [facility] Medications Administered Includes: Administered Medications in patient's chart No Administered Medications Recorded Results Includes: Results from 10/10/2023 through 10/09/2024 No Results Recorded For Specified Dates History of Present Illness History of Present Illness not supported for this document type No History of Present Illness Recorded Social History Description Last Updated Exercising regularly 02/08/2021 Last Documented On 1 2:53PM ; [facility], [facility] Not using alcohol 02/08/2021 Last Documented On 1 2:53PM ; [facility], [facility] Caffeine use 12/13/2020 Last Documented On 1 11:58AM ; [facility], [facility] No recent change in diet 12/13/2020 Last Documented On 11:58AM ; [facility], [facility] Not using drugs 12/13/2020 Last Documented On 1 11:58AM ; [facility], [facility] Yes, current smoker. 12/13/2020 Last Documented On 1 11:58AM ; [facility], [facility] Non-smoker 12/13/2020 Last Documented On 1 11:58AM ; [facility], [facility] Smoking Status Unknown Medical History Includes: Medical History in patient's chart Description Last Updated No recent immunization for flu Last Documented On 1 2:53PM ; [facility], [facility] No recent immunization for pneumococcal pneumonia 02/08/2021 Last Documented On 1 2:53PM ; [facility], [facility] Past medical and surgical history non-co ntributory 12/13/2020 Last Documented On 1 11:58AM ; [facility], [facility] Family History Includes: Family History in patient's chart Description Last Updated Diabetes mellitus 12/13/2020 Last Documented On 1 11:58AM ; [facility], [facility] Family history of rheumatoid arthritis 0 12/13/2020 Last Documented On 1 11:58AM ; [facility], [facility] Stroke / Seizures 12/13/2020 Last Documented On 1 11:58AM ; [facility], [facility] Family history of heart disease 12/14/19 21 Last Documented On 1 11:58AM ; [facility], [facility] Review of Systems Review of Systems not supported for this document type No Review of Systems Recorded Mental Status No Mental Status Recorded Functional Status No Functional Status Recorded Physical Exam Physical Exam not supported for this document type No Physical Exam Recorded Allergies Includes: Active, inactive, and resolved Allergies No Known Allergies Insurance Includes: Active Insurance Policies Plan Name Member ID Group # Subscriber Relationship Effect lynette Dates 1 - [employer] [id number] Michael Posey Self 05/22 - Unknown 2 - [employer]na [facility] [id number] Michael Posey Self 06/22/19 21 - Unknown Clinical Notes Includes: Signed Clinical Notes starting from 06/05/2022 No Clinical Notes Recorded
--- OUTSIDE RECORDS SUMMARY | 2024-10-09 21:01 | XMS_ITS | Clinical Summary ---
Author Organization [facility] , [facility] Address [address] [place] [address] Phone Care Team Providers Care Engine Buildup Mechanic Name Role Phone SIMONE DIAMOND Unavailable [phone] John LOCKE, Esa Koehler Unavailable [phone] Reason for Visit and Chief Complaint The Chief Complaint is: Low back pain Problems Includes: Problems addressed during this encounter and other active Problems Current Visit Onset Date Resolved Date Provider Zen white Status Lower Back Pain 12/13/2020 Esa Lopez MD Act lynette Last Documented On 1 1:17PM ; [facility] Plan of Treatment Patient was seen by myself and Dr. John Bansal PA-C. Patient will follow up As need to refer him to pain management for epidurals or possibly even facet injections. Brochure was given about exercises to work on. - Last Documented On 12/25/2020 11:58AM ; [facility] Assessments Includes: Assessments from this encounter Findings L4-5 L5-S1 DDD and facet arthritis - Last Documented On 12/25/2020 11:58AM ; [facility] Medical Equipment - Implanted Devices Includes: Current Devices No Medical Equipment Recorded Medications Includes: Medications discussed during this encounter and other current Medications Current Medications (continue as prescribed) Propranolol HCl 20 MG Oral Tablet 12/04/2020 Provide r: Diagnosis: Last Documented On 1 1:51PM By Teodora Gonzalez ; [facility] Meloxicam 15 MG Oral Tablet 11/23/2020 Provider: DIAMOND LOPEZ Diagnosis: Last Documented On 1 1:51PM By Teodora Gonzalez ; [facility] traMADol HCl 50 MG Oral Tablet 11/23/2020 Provider: DIAMOND LOPEZ Diagnosis: Last Documented On 1:51PM By Teodora Gonzalez ; [facility] Medications Administered Includes: Administered Medications from this encounter No Administered Medications Recorded Vital Signs Includes: Vital Signs from this encounter Vital Name 12/13/2020 01:48P Blood Pressure Sitting (mmHg) 105/76 Pulse Rate-Sitting (bpm) 62 Height (in) 65 Weight (lb) 135 Body Mass Index (kg/m2) 22.5 Body Surface Area (m2) 1.7 Note: violet Last Documented: On 12/13/2020 1:49PM ; [facility] Results Includes: Results discussed during this encounter No Results Recorded For Specified Dates History of Present Illness Includes: History of Present Illness from this encounter ISSAC Posey is a 40 year old male. - Symptoms Meds makes it better lifting, setting down makes it worse. - Allergy list reviewed - Problem list reviewed - Medication reconciliation performed - Medication list reviewed - Previous history of new onset pain 2014 Work Injury - Sharp pain Symptoms - Pain is constant (100% of the time) - Pain is throbbing - Yes, previous treatment. Carolina Lopez - History of Physical Therapy - History of Injections Medications used for this condition: Patient here today for complaints of low back pain hurt his back 7 years ago lifting breaks onto a trailer complaint of right-sided low back pain, radiates down the back of the knee and numbness in this area he says is getting worse he has tried tramadol physical therapy and injections in the past which has not helped no groin pain he says it with a somewhat manages it is the tramadol he cannot take any other pain medicine due to not tolerating those things denies any bowel or bladder issues and no previous back surgery. The pain is constant Social History Description Last Updated Caffeine use 12/13/2020 Last Documented On 1 11:58AM ; [facility] Exercising regularly 12/13/2020 Last Documented On 1 11:58AM ; [facility] No recent change in diet 12/13/2020 Last Documented On 1 11:58AM ; [facility] Not using alcohol 12/13/2020 Last Documented On 1 11:58AM ; [facility] Not using drugs 12/13/2020 Last Documented On 11:58AM ; [facility] Yes, current smoker. 12/13/2020 Last Documented On 11:58AM ; [facility] Non-smoker 12/13/2020 Last Documented On 11:58AM ; [facility] Smoking Status Unknown Procedures and Surgical History Includes: Procedures from this encounter Procedures Code Diagnosis Performing Provider Service L ocation Service Date use of tobacco assessment performed 1000F Last Documented On 1 1:17PM ; [facility] an X-ray was performed 45828 Last Documented On 1 1:53PM ; [facility] an MRI was performed [id number] Last Documented On 1 1:53PM ; [facility] History of EKG Last Documented On 1:53PM ; [facility] History of Blood Tests Last Documented On 1 1:53PM ; [facility] Medical History Includes: Medical History addressed during this encounter Description Last Updated Past medical and surgical history non-co ntributory 12/13/2020 Last Documented On 1 11:58AM ; [facility] No recent immunization for flu 1 Last Documented On 11:58AM ; [facility] No recent immunization for pneumococcal pneumonia 12/13/2020 Last Documented On 1 11:58AM ; [facility] Family History Includes: Family History addressed during this encounter Description Last Updated Diabetes mellitus 12/13/2020 Last Documented On 1 11:58AM ; [facility] Family history of rheumatoid arthritis 0 12/13/2020 Last Documented On 11:58AM ; [facility] Stroke / Seizures 12/13/2020 Last Documented On 11:58AM ; [facility] Family history of heart disease 12/14/19 21 Last Documented On 11:58AM ; [facility] Review of Systems Includes: Review of Systems from this encounter Systemic: Not feeling tired, no recent weight loss, and no recent weight gain. Head: No headache and no sinus pain. Eyes: No vision problems and no Cataracts. Glasses/Contacts. No Glaucoma. Otolaryngeal: No hearing loss and no tinnitus. Cardiovascular: No chest pain or discomfort, no palpitations, no Hypertension, and no High Cholesterol. Pulmonary: No daytime asthma symptoms and no chronic cough. No wheezing. Gastrointestinal: No heartburn and no abdominal pain. No Indigestion, no Acid Reflux, no Peptic Ulcer, no GI Stomach Bleed, and no Ulcers. Endocrine: No hot flashes, no muscle weakness, no Diabetes, no Hypothyroid, and no Hyperthyroid. Hematologic: No easy bleeding, no tendency for easy bruising, and no Anemia. Musculoskeletal: No Arthritis. Lower back pain. No soft tissue swelling. Pain localized to one or more joints. Neurological: No dizziness. Convulsions and numbness. Psychological: No anxiety, no emotional lability, no depression, and no insomnia. Not crying for no reason. Skin: No dry skin. No Ulcers, no Scars, and no rash. Allergic and Immunologic: No complaint of seasonal allergic reaction. Mental Status Includes: Mental Status from this encounter Description No anxiety Functional Status Includes: Functional Status from this encounter No Functional Status Recorded Physical Exam Includes: Physical Exam from this encounter Allergies Includes: Active Allergies No Known Allergies Encounters Encounter Provider Location Date Check-In Time Check-Out Time Diagnosis Physician Specified Esa Lopez MD [facility] 12/14/19 21 1:15PM 2:11PM Insurance Includes: Active Insurance Policies Plan Name Member ID Group # Subscriber Relationship Effect lynette Dates 1 - [employer] [id number] Michael Posey Self 05/22 - Unknown 2 - [employer]na [facility] [id number] Michael Posey Self 06/22/19 21 - Unknown Clinical Notes Includes: Clinical Notes from this encounter No Clinical Notes Recorded
--- NOTE | 2024-10-09 21:15 | XR_ITS ---
PROCEDURE INFORMATION: Exam: XR Right Hand Exam date and time: 10/09/2024 9:18 PM Age: 44 years old Clinical indication: Injury or trauma; Other: Blunt trauma to 3rd mcp; Blunt trauma (contusions or hematomas); Hand; Right; Injury details: Hit knuckle while playing pool; Additional info: Pain knuckles TECHNIQUE: Imaging protocol: Radiologic exam of the right hand. Views: 1 or 2 views. COMPARISON: No relevant prior studies available. FINDINGS: Bones/joints: No acute fracture or dislocation. Soft tissues: Normal. IMPRESSION: No acute fracture or dislocation.
[2024-10-09 21:16] VITALS: BP 121/84; PULSE 72; RESP 16; TEMP 36.6; O2SAT 99; BMI 23.1
--- NOTE | 2024-10-09 22:15 | HMH.EDGENADL ---
Discharge Plan Disposition Patient Disposition: Home, Self-Care Condition: Good Prescriptions Prescriptions: No Action cholecalciferol (vitamin D3) 25 mcg (1,000 unit) capsule 25 mcg PO DAILY hydrocodone-acetaminophen 5-325 mg tablet 1 tab PO Q4-6H PRN propranolol 20 mg tablet 20 mg PO BID Qty: 180 3RF meloxicam 15 MG tablet 15 mg PO DAILY prednisone [prednisone] 20 mg tablet 20 mg PO BID Qty: 10 0RF cephalexin [cephalexin] 500 mg capsule 500 mg PO TID Qty: 30 0RF prednisone [prednisone] 20 mg tablet 20 mg PO BID Qty: 10 0RF cephalexin [cephalexin] 500 mg capsule 500 mg PO TID Qty: 30 0RF prednisone [prednisone] 20 mg tablet 20 mg PO BID Qty: 10 0RF cephalexin [cephalexin] 500 mg capsule 500 mg PO TID Qty: 30 0RF Referrals Follow up/Referrals: Merle Lopez APRN [Primary Care Provider] - See instructions Activity Restrictions/Add. Instructions Additional Instructions/Restrictions: You were evaluated in the emergency department today. Take Tylenol and ibuprofen as needed for pain. X-rays do not show any broken bones, please follow-up closely with your primary care provider for repeat x-rays if you continue to have severe pain. Return to the emergency department for new or worsening symptoms. Clinical Impressions Clinical Impression: Contusion of hand, right Stand Alone Forms Stand Alone Forms: Work/School Release Instructions Patient Instructions: DI for Acute Pain -- Adult, DI for Hand Pain Print Language Print Language: Luxembourgish Discharge ED Provider: Taylor June General Adult HPI General Chief complaint: PAIN Stated complaint: AO 4-19 hit right hand on pool table Time Seen by Provider: 10/09/24 21:03 Mode of Arrival: Ambulatory Source of Information: Patient Description of Symptoms (Recalled from ER Triage Doc. by RN): pt reports he was playing pool last night and missed the ball and hit the pool table with his right hand.pt now reports pain with movement History of Present Illness HPI narrative: This patient is a 44-year-old male without significant past medical history presenting to the emergency department for evaluation with concern for right hand injury. He states he was playing pool last night, missed the ball, and accidentally hit the pole table with his knuckles. He now has pain with movement. No other concerns or complaints noted Related Data Home Medications ?Medication ?Instructions ?Recorded ?Confirmed meloxicam 15 mg tablet 15 mg PO DAILY INFLAMMATION 04/05/18 01/01/21 cholecalciferol (vitamin D3) 25 25 mcg PO DAILY 12/04/20 01/01/21 mcg (1,000 unit) capsule hydrocodone 5 mg-acetaminophen 325 1 tab PO Q4-6H PRN 01/01/21 01/01/21 mg tablet Previous Rx's ?Medication ?Instructions ?Recorded propranolol 20 mg tablet 20 mg PO BID #180 tabs 01/01/21 cephalexin 500 mg capsule 500 mg PO TID #30 caps 05/17/22 cephalexin 500 mg capsule 500 mg PO TID #30 caps 05/17/22 cephalexin 500 mg capsule 500 mg PO TID #30 caps 05/17/22 prednisone 20 mg tablet 20 mg PO BID #10 tabs 05/17/22 prednisone 20 mg tablet 20 mg PO BID #10 tabs 05/17/22 prednisone 20 mg tablet 20 mg PO BID #10 tabs 05/17/22 Allergies Allergy/AdvReac Type Severity Reaction Status Date / Time No Known Allergies Allergy Verified 01/01/21 15:34 [facility] Disclaimer: The information contained in this section may have been updated after the patient was seen, as this information can be updated by other users. Social History Smoking Status: Never smoker alcohol intake: never substance use type: denies use current occupational status: employed Travel in the last 8 weeks: None household members: spouse and children current occupation: AUTOMOTIVE caffeine: Yes Have you lived/traveled outside [place] in past 30 days?: No Contact w/someone who lives/traveled outside US past 30 days?: No Exposure to someone with infectious disease in past 14 days?: No Do you have a fever (greater than 100.4 F or 38 C)?: No Have you tested positive for COVID-19: No Exposed to someone with COVID-19 in past 14 days?: No Do you have a sore throat?: No Do you have a cough?: No Do you have any weakness?: No Do you have any diarrhea?: No Are you experiencing any unusual bleeding?: No Do you have any muscle aches/pain?: No Do you have any abdominal pain?: No Are you experiencing loss of taste or smell?: No Other Medical History Have you received the Flu Vaccine for this season: No Have you received the Pneumonia Vaccine: No ROS Obtained: Yes All systems reviewed & no additional complaints except as documented Physical Exam General General appearance: alert and in no apparent distress Head Head exam: atraumatic and normocephalic Eye Eye exam: Present normal appearance, PERRL and EOMI ENT ENT exam: Present normal exam, normal oropharynx, mucous membranes moist and normal external ear exam Neck Neck exam: Present normal inspection, full ROM and trachea midline; Absent tenderness Chest Chest inspection: Present normal inspection and symmetric chest wall rise; Absent tenderness Respiratory Respiratory exam: Present normal lung sounds bilaterally; Absent respiratory distress, wheezes, stridor or accessory muscle use Cardiovascular Cardiovascular exam: Present regular rate and normal rhythm Abdominal Exam Abdominal exam: Present soft; Absent distention, tenderness or guarding Extremities Exam Extremities exam: Present full ROM, tenderness and normal capillary refill; Absent edema Expanded Upper Extremity Exam Right: Hand L/R back image: 1. Minimal swelling and tenderness. Neurovascular intact distally Back Exam Back exam: Present normal inspection and full ROM; Absent tenderness Neurological Exam Neurological exam: Present alert, oriented X3, CN II-XII intact and normal gait; Absent motor sensory deficit Psychiatric Psychiatric exam: Present normal affect and normal mood Skin Skin exam: Present warm and dry Medical Decision Making Medical Records Medical records reviewed: Yes I reviewed the patient's medical records. Screening: Per USPSTF and CDC recommendations, given the prevalence of disease in our region, it is our hospital?s policy to screen for HIV and viral Hepatitis for all patients aged 18 and over and those with ongoing risk factors. Dax Inquiry Pt receiving controlled substance: No Vital Signs: 10/09/24 21:16 10/09/24 23:03 Temperature 97.9 F 97.9 F Temperature Source Oral Pulse Rate 78 Pulse Rate [Right] 72 Respiratory Rate 16 16 Blood Pressure 132/87 Blood Pressure [Right Arm] 121/84 Blood Pressure Mean [Right Arm] 96 02 Sat by Pulse Oximetry 99 Oxygen Delivery Method Room Air Room Air Lab Data Lab results reviewed: Yes I reviewed the patient's lab results. Orders (Tests/Meds): ORDERS Category Date Time Status Hand XR right 2 views [XR hand RT 2V] Stat Exams 10/09/24 21:15 Completed Medical Decision Narrative: In summary, this patient is a 44-year-old presenting to the Emergency Department for evaluation of right hand injury. Differential diagnoses considered include but are not limited to fracture, contusion, strain/pain, neurovascular injury. Ruling out the most morbid conditions drove assessment. On exam, the patient has minimal tenderness to palpation of his right knuckle but is neurovascularly intact. No open wounds. Workup included x-rays of the right hand. I independently interpreted x-ray prior to the radiologist read and noted no acute fracture. Please see their read for final interpretation. At this time, it is felt that the patient is appropriate for discharge home with instruction for supportive management and close follow-up. Strict return precautions given Critical Care Critical Care Time Critical Care Time: No
[2024-10-09 23:03] VITALS: BP 132/87; PULSE 78; RESP 16; TEMP 36.6; O2SAT 98
== END 2024-10-09 23:04 | disposition home or self-care (01) ==
PROVIDERS: Emergency Provider Emergency Medicine; PCP Nurse Practitioner Family
DX: S60.221A Contusion of right hand, initial encounter (principal); W22.8XXA Striking against or struck by other objects, initial encounter
CPT/HCPCS: 73120; 99283

== ENCOUNTER 2024-11-01 11:42 | Emergency (ER) | payer SELFPAY ==
[2024-11-01 11:51] VITALS: BP 123/84; PULSE 73; RESP 17; TEMP 36.6; O2SAT 96; BMI 22.3
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
[2024-11-01] MEDS: ACETAMINOPHEN 500MG TAB 1000 MG PO (12:18)
[2024-11-01] MEDS: METHOCARBAMOL 500MG TABLET 500 MG PO (12:18)
[2024-11-01] MEDS: IBUPROFEN 400 MG TABLET 800 MG PO (12:18)
[2024-11-01 13:13] VITALS: BP 132/70; PULSE 80; RESP 20; TEMP 36.6; O2SAT 98
== END 2024-11-01 13:14 | disposition home or self-care (01) ==
PROVIDERS: Emergency Provider Emergency Medicine; PCP Nurse Practitioner Family
DX: S00.83XA Contusion of other part of head, initial encounter (principal); M54.2 Cervicalgia; Y04.8XXA Assault by other bodily force, initial encounter
CPT/HCPCS: 70486; 99284